=== PATIENT | female | born 1960 | race Caucasian/White ===

== ENCOUNTER 2017-01-10 06:55 | Inpatient (IN) | payer BC ==
[2017-01-10] MEDS ORDERED: Midazolam HCl 2 mg/2 ml Vial ONE ×2 (08:51→08:56)
[2017-01-10] MEDS ORDERED: Fentanyl 100 MCG/2 ML VIAL ONE ×3 (08:56→12:01)
[2017-01-10] MEDS ORDERED: Bupivacaine HCl 0.5%/Epinephrine 1:200,000/PF 30 ml Vial ONE (08:57)
[2017-01-10] MEDS ORDERED: Ondansetron HCl/PF 4 MG/2 ML Vial ONE (09:27)
[2017-01-10] MEDS ORDERED: Succinylcholine Chloride 20 MG/ML 10 ml SYRINGE FS ONE (09:27)
[2017-01-10] MEDS ORDERED: Labetalol HCl 100 MG/20 ML SYR ONE (09:27)
[2017-01-10] MEDS ORDERED: PHENYLEPHRINE-NS 100 MCG/ML 10 ML SYRINGE ONE (09:27)
[2017-01-10] MEDS ORDERED: Propofol 200 MG/20 ML VIAL ONE (09:27)
[2017-01-10] MEDS ORDERED: Glycopyrrolate 0.2 MG/ML 5 ML SYRINGE ONE (09:27)
[2017-01-10] MEDS ORDERED: Dexamethasone 20 MG/5 ML VIAL ONE (09:27)
[2017-01-10] MEDS ORDERED: Lidocaine 2% PF 10 ML AMP (For Epidural Use) ONE (09:27)
[2017-01-10] MEDS ORDERED: Phenylephrine 10 MG/NS 250 ML 250 ML ONE (10:09)
[2017-01-10] MEDS ORDERED: Dextrose 50% Abboject 50 ML SYRINGE SLOW IVP PRN ×2 (11:21)
[2017-01-10] MEDS ORDERED: Promethazine HCl 25 MG/ML VIAL IM PRN ×3 (11:21→12:33)
[2017-01-10] MEDS ORDERED: Ondansetron HCl/PF 4 MG/2 ML Vial IVP PRN ×3 (11:21→12:33)
[2017-01-10] MEDS ORDERED: diphenhydrAMINE HCl 50 MG/ML 1 ML VIAL IVP PRN ×2 (11:21→12:33)
[2017-01-10] MEDS ORDERED: Hydrocodone-Acetamin 15 ML UDCUP PO PRN (11:21)
[2017-01-10] MEDS ORDERED: Dextrose 5% in Water 1,000 ML IV PRN (11:21)
[2017-01-10] MEDS ORDERED: Promethazine HCl 25 MG/ML VIAL SLOW IVP PRN (11:29)
[2017-01-10] MEDS ORDERED: HYDROmorphone 2 MG/ML VIAL SLOW IVP PRN (11:29)
[2017-01-10] MEDS ORDERED: Dextrose 5% in Water 1,000 ML IV SCH (11:30)
--- NOTE | 2017-01-10 11:37 | OP ---
PREOPERATIVE DIAGNOSIS: Large hiatal hernia with reflux. SURGEON: Kalin Victor M.D. PROCEDURE PERFORMED: Laparoscopic hiatal hernia repair with mesh, Cari fundoplication, and esopha gogastroduodenoscopy. INDICATIONS: This is a 56-year-old female who has had severe gastroesophageal reflux. She also was having epigastric pain. A CT scan showed large hiatal hernia. She underwent EGD documenting the h iatal hernia. She underwent an esophageal manometry which showed low lower esophageal sphincter pre ssure. FINDINGS: Very large hiatal hernia containing a lot of adipose. This was done over a 40 Czech clyde gie. PROCEDURE IN DETAIL: After informed consent was obtained, the patient was taken to the operating ro om and given general endotracheal anesthesia, placed in the supine position. Her abdomen was preppe d and draped in the usual fashion. Local anesthesia infiltrated subcutaneously and deep. A 5 mm in cision was performed approximately 8 inches below the xiphoid slightly to the left. Veress needle i nserted. Drop test performed. Pneumoperitoneum was created to a volume of 2 liters of carbon dioxi de. Utilizing a bladeless 5 mm trocar and 0 degree laparoscope, direct visual entry in the abdomina l cavity was performed. Pneumoperitoneum was created to a pressure of 15 mmHg. The patient placed in steep reverse Trendelenburg position. Nathansen liver retractor inserted. Left lobe of liver re tracted superiorly. She had a large hiatal hernia defect. A 5 mm port was placed just to the left of the falciform. An 8 mm port placed left subcostal and another 5 mm port placed left lateral abdo men. The stomach was reduced and the peritoneum opened. The gastrophrenic ligament was opened util izing the LigaSure. The peritoneum was opened circumferentially with the LigaSure. Then a retroeso phageal plane was created bluntly. The Yang drain was then placed through this opening and the e sophagus was retracted inferiorly. The hiatal opening was further defined using the LigaSure. A 40 -Czech bougie inserted and a posterior crural plication was performed utilizing 0 Ethibond and Sew- Right and tie knot device. Then, a Strattice 4 x 6 cm mesh was used. It was cut into a heart shape and a small hole cut out for the esophagus. This was inserted intraabdominally, placed around the esophagus and sutured to the diaphragm with interrupted 2-0 silk sutures tied intracorporeally. The n, the short gastrics were taken down utilizing the LigaSure to expose the fundus. The fundus was t hen grasped and sutured to itself over the bougie with interrupted 2-0 silk sutures tied intracorpor eally. Then, the TISSEEL tissue sealer was used to further secure the mesh to the diaphragm. An in traoperative endoscopy was performed. The video endoscope inserted under direct vision and advanced into the stomach. The stomach insufflated with air. There was no air leak. The pylorus was cannu lated into the duodenum, no problems. The scope was retracted retroflexed. The wrap looked good. No torsion or paraesophageal component. The stomach decompressed and the scope removed. Trocars an d retractors removed. The skin closed with interrupted 4-0 Rapide. Dermabond applied. The patient tolerated the procedure well and transferred to recovery in good condition. Sponge and needle coun t verified correct x2.
[2017-01-10] MEDS ORDERED: diphenhydrAMINE HCl 25 MG CAP PO PRN (12:33)
[2017-01-10] MEDS ORDERED: diphenhydrAMINE HCl 50 MG/ML 1 ML VIAL IM PRN (12:33)
[2017-01-10] MEDS ORDERED: Fentanyl 5000 MCG/250 ML CADD IVPB PRN ×2 (12:33→16:03)
[2017-01-10] MEDS ORDERED: Naloxone HCl 0.4 mg/ml Vial IV PRN (12:33)
[2017-01-10] MEDS ORDERED: Zolpidem Tartrate 5 MG TAB PO PRN (12:33)
[2017-01-10] MEDS ORDERED: Communication Order-Pharmacy FS SCH (12:45)
[2017-01-10] MEDS: D5 1/2 NS w/20 mEq KCL 1,000 ML IV SCH ×2 (14:32→22:17)
[2017-01-10 16:29] VITALS: BMI 34.7
[2017-01-10] MEDS: Ketorolac Tromethamine 30 MG/ML VIAL IVP SCH ×3 (17:06→23:58)
[2017-01-10] MEDS ORDERED: cloNIDine 0.2mg/24 Hour PATCH TD SCH (20:00)
--- NOTE | 2017-01-10 22:48 | CON ---
DATE OF CONSULTATION: 01/10/2017 CHIEF COMPLAINT: Elevated blood pressure. HISTORY OF PRESENT ILLNESS: The patient is a 57-year-old female who on the day of consultation has just undergone a laparoscopic hiatal hernia repair with mesh, Cari fundoplication and esophagogast roduodenoscopy. Postop, she was complaining of a lot of pain and has had a very labile blood pressu re since coming out of the recovery room. It has been up into the 190s. Currently, it is 154/87. The patient is alert, responsive. Denies headaches, nausea, vomiting, blurred vision, chest pain, b ut she is having operative site swelling and tenderness especially in the xiphoid area. PAST MEDICAL HISTORY: Significant for very large hiatal hernia with secondary GI bleed causing anem ia, severe anxiety, dyspnea, proctocolitis, history of gastric ulcer, hypertension, GERD, depression , and chronic back pain. PAST SURGICAL HISTORY: Include most recently EGD and colonoscopy per last hospitalization and recen t cardiac clearance per Dr. Tom showing no evidence of cardiac ischemia, 2 previous C-sections, left shoulder surgery, a cyst on her chest removed and cholecystectomy, prior psychiatric history i ncludes Anxiety and depression. SOCIAL HISTORY: She is , denies smoking but drinks socially and occasionally. ALLERGIES: She has no known drug allergies. MEDICATIONS ON ADMISSION: Include doxepin 300 mg at bedtime, BuSpar 10 mg b.i.d., Topamax 100 b.i.d ., citalopram 20 mg, hydroxyzine 50 mg t.i.d. for anxiety, omeprazole 20 mg daily, and lisinopril 20 mg daily. REVIEW OF SYSTEMS: Significant for anxiety but constitutionally she is negative for chills, fever. Eyes: Negative for pain, blurred incision and drainage. HEENT: Negative for throat pain, Runny n ose, sores, ulcers. Neck: Supple, denying pain with range of motion or swelling or masses. Cardio vascular: Denies palpitations, peripheral extremities were warm to touch. Chest: Tender in the xi phoid area to palpation, but no pain with inspiration. Abdomen: Swollen and distended, tender to p alpation. Denies vomiting, nausea, diarrhea. Genitourinary: Denies blood in urine or stool or tonia nful urination. Musculoskeletal: Denies swelling, pain in the joints or weakness. Skin: Without acute rashes or lesions aside from ecchymotic bruising at the incision sites. Neurologic: She is a nxious, but denies hallucinations or delusions. PHYSICAL EXAMINATION: At the time of consultation, VITAL SIGNS: 177/104, pulse 79, temperature 98.7, respirations 20, O2 sat 96%. GENERAL: This is an obese, female, alert, oriented, and cooperative. HEENT: Normocephalic and atraumatic. Pupils equal, round, and reactive to light. Extraocular musc les are intact. TMs, nares, pharynx are clear. NECK: Supple, trachea midline, no mass, no tenderness. CHEST: Clear to auscultation, tender at the xiphoid area with some swelling. HEART: Regular rate and rhythm without murmur. BREAST: Deferred. ABDOMEN: Tender supraumbilical area, appears swollen and distended with bruising at the incision si giuliana. GENITOURINARY: Deferred. EXTREMITIES: Without clubbing, cyanosis, or edema. Normal range of motion present. SKIN: Without rashes or lesions aside from ecchymotic incision site lesions. NEUROLOGIC: Cranial nerves are intact. Unable to test gait and cerebellar function at this time. Sensory exam is grossly intact. Mental status is at baseline. ASSESSMENT: 1. Postoperative day #1 for hiatal hernia repair with Cari fundoplication and EGD. 2. Hypertension. 3. Anxiety disorder. PLAN: Will apply Catapres transdermal patch since the patient is n.p.o. at this time for swallow st udy in the morning. We will also have p.r.n. hydralazine 10 mg IV q.2 h. p.r.n. systolic over 170. Should there be any further complications, the nursing staff will contact me. Time factor with [facility] rt review, the patient examination and preparation of consultation with dictation at 50 minutes.
[2017-01-11] MEDS: Ketorolac Tromethamine 30 MG/ML VIAL IVP SCH ×2 (06:00→13:20)
[2017-01-11] MEDS: D5 1/2 NS w/20 mEq KCL 1,000 ML IV SCH ×2 (06:10→13:25)
[2017-01-11 06:17] LABS: #Lymphocytes 0.8 thou/uL (1.20-3.40); #Monocytes 0.8 thou/uL (0.11-0.59); %Lymphocytes 7.7 % (21.0-51.0); %Monocytes 7.2 % (0.0-10.0); Hematocrit 32.2 % (36.0-47.0); Mean Platelet Volume 8.5 fL (7.4-10.4); Red Blood Cell (RBC) Count 4.11 mill/uL (4.20-5.40); White Blood Cell (WBC) Count 10.5 thou/uL (4.8-10.8)
[2017-01-11 06:39] LABS: Anion Gap 13 mmol/L (10-20); BUN (Urea Nitrogen) 10 mg/dL (9.8-20.1); Calc. Creatinine Clearance 108 mL/min (70-130); Calcium 9.6 mg/dL (7.8-10.44); Carbon Dioxide 23 mmol/L (22-29); Chloride 105 mmol/L (98-107); Estimated GFR-MDRD 77
[2017-01-11] MEDS ORDERED: Enoxaparin Sodium 40 MG/0.4 ML SYRINGE SC SCH (09:00)
[2017-01-11] MEDS ORDERED: Pantoprazole 40 MG VIAL IVP SCH (09:00)
--- NOTE | 2017-01-11 09:53 | RAD ---
LIMITED UPPER GI WITH 25 ML ORAL GASTROGRAFIN: Date: 01/11/17 HISTORY: Recent hiatal hernia surgery. FINDINGS/IMPRESSION: There are tertiary contractions in the esophagus. The contrast passes from the esophagus into the st omach without high grade obstruction. No contrast leak is seen. POS: [facility]
[2017-01-11 12:19] VITALS: BP 155/82; TEMP 98.1
[2017-01-11] MEDS ORDERED: Acetaminophen 1,000 MG in Premix Bag 1 BAG IVPB SCH (14:00)
--- NOTE | 2017-01-11 22:53 | DIS ---
DISCHARGE DIAGNOSES: 1. Large hiatal hernia. 2. Severe gastroesophageal reflux. PROCEDURES DURING ADMISSION: Laparoscopic hiatal hernia repair with mesh, Cari fundoplication, in traoperative esophagogastroscopy, postoperative Gastrografin swallow. HOSPITAL COURSE: Patient was admitted and taken to the operating room where she underwent a hiatal hernia repair. Postoperatively, she has done well. Initial Gastrografin swallow was fine, started on liquids. She is tolerating well. She is discharged home in good condition. Pain is controlled on p.o. medications. Discharged home on hydrocodone elixir and Zofran. She will follow up with me in 2 weeks.
[2017-01-17] MEDS ORDERED: cloNIDine 0.2mg/24 Hour PATCH TD SCH (09:00)
[2017-01-17] MEDS ORDERED: Hydrocodone-Acetamin 15 ML UDCUP PO PRN (12:36)
== END 2017-01-11 16:11 | disposition home or self-care (01) | DRG 328 ==
LOC: SDC 06:55 → SURG A 11:33
PROVIDERS: ADMIT Surgery; ATTEND Surgery
PROC: 0BUS4JZ (ICD-10-PCS; principal; 2017-01-10)
PROC: 0DV48ZZ Restriction of Esophagogastric Junction, Via Natural or Artificial Opening Endoscopic (ICD-10-PCS; 2017-01-10)
PROC: 0BUR4JZ (ICD-10-PCS; 2017-01-10)
DX: K44.9 Diaphragmatic hernia without obstruction or gangrene (principal); I10 Essential (primary) hypertension; K21.9 Gastro-esophageal reflux disease without esophagitis; D64.9 Anemia, unspecified; F41.9 Anxiety disorder, unspecified; F32.9 Major depressive disorder, single episode, unspecified; Z87.891 Personal history of nicotine dependence
CPT/HCPCS: 36415; 74241; 80048; 85025; C9113; J0131; J0360; J0670; J1100; J1650; J1885; J2001; J2250; J2405; J2704; J3010; Q4130

== ENCOUNTER 2017-01-13 11:41 | Emergency (ER) | payer BC ==
[2017-01-13] MEDS ORDERED: Labetalol HCl 100 MG/20 ML VIAL ONE (12:51)
[2017-01-13] MEDS ORDERED: Ondansetron HCl/PF 4 MG/2 ML Vial ONE (12:57)
[2017-01-13 13:06] LABS: #Eosinphils 0.2 thou/uL (0.0-0.7); #Lymphocytes 1.1 thou/uL (1.20-3.40); #Monocytes 0.8 thou/uL (0.11-0.59); #Neutrophils 5.3 thou/uL (1.40-6.50); %Basophils 0.6 % (0.0-1.0); %Eosinophils 2.2 % (0.0-10.0); %Monocytes 10.2 % (0.0-10.0); Hematocrit 34.4 % (36.0-47.0); Mean Platelet Volume 8.5 fL (7.4-10.4); Red Blood Cell (RBC) Count 4.38 mill/uL (4.20-5.40); White Blood Cell (WBC) Count 7.4 thou/uL (4.8-10.8)
[2017-01-13 13:29] LABS: ALT (SGPT) 105 U/L (8-55); AST (SGOT) 48 U/L (5-34); Alkaline Phosphatase 92 U/L (40-150); Anion Gap 15 mmol/L (10-20); BUN (Urea Nitrogen) 6 mg/dL (9.8-20.1); Bilirubin, Total 0.2 mg/dL (0.2-1.2); CK (CPK) 61 U/L (29-168); Calc. Creatinine Clearance 0 mL/min (70-130); Calcium 9.2 mg/dL (7.8-10.44); Carbon Dioxide 25 mmol/L (22-29); Chloride 100 mmol/L (98-107); Estimated GFR-MDRD 86; Globulin 3.2 g/dL (2.4-3.5); Protein, Total 6.9 g/dL (6.0-8.3); Salicylate Less than 8.0 mg/dL (15.0-30.0)
[2017-01-13] MEDS ORDERED: ISOVUE-370 76%-LOCM 1 ML ONE (14:27)
[2017-01-13 14:29] LABS: Bilirubin Negative (Negative); Blood, Urine Negative (Negative); Glucose, Urine (Dipstick) Negative (Negative); Ketone, Urine Negative (Negative); Nitrite Negative (Negative); Protein, Urine (Dipstick) Negative (Neg-Trace); Urobilinogen 0.2 mg/dL (0.2-1.0)
[2017-01-13 14:38] LABS: Amphetamine Not Detected (NotDetected); Methadone Not Detected (NotDetected); Methamphetamine Not Detected (NotDetected)
--- NOTE | 2017-01-13 15:20 | CT ---
CT OF THE ABDOMEN AND PELVIS WITH CONTRAST: COMPARISON: 10/18/15. HISTORY: Postoperative pain. Medical overdose on pain medications. TECHNIQUE: Multiple contiguous axial images were obtained in a CT of the abdomen and pelvis with contrast. Cor onal reformats were performed. Contrast is seen in the colon which may be from prior contrast exami nation. FINDINGS: The patient is status post cholecystectomy. The liver, right kidney, adrenal glands, spleen, and pa ncreas are unremarkable. There are stable hypodensities in the left kidney measuring up to 1.7 cm i n size which represent cysts. No free air, free fluid, or stranding changes are seen in the abdomen or pelvis. The reproductive organs are unremarkable. There is scattered diverticula in the colon. The small b owel is unremarkable. No abdominal or pelvic lymphadenopathy are seen. There are small bilateral pleural effusions with adjacent atelectasis. The abdominal wall soft tiss ues are unremarkable. IMPRESSION: 1. No evidence of acute intraabdominal/pelvic abnormality. 2. Bilateral pleural effusions with adjacent atelectasis. 3. Left renal cyst. 4. Diverticulosis. POS: [facility]
== END 2017-01-13 14:56 | disposition home or self-care (01) ==
LOC: ERS 11:41
DX: G89.18 Other acute postprocedural pain (principal); I10 Essential (primary) hypertension; K21.9 Gastro-esophageal reflux disease without esophagitis; F41.9 Anxiety disorder, unspecified; F32.9 Major depressive disorder, single episode, unspecified
CPT/HCPCS: 36415; 36416; 74177; 80053; 80306; 80307; 81003; 82550; 82553; 83605; 84443; 84484; 85025; 93005; 96374; 96375; J0360; J2405

== ENCOUNTER 2017-08-04 20:12 | Inpatient (IN) | payer BC ==
[~2017-08-04 20:12] MED LIST: ISOVUE-370 76%-LOCM 1 ML ONE
[2017-08-04 20:44] LABS: #Eosinphils 0.3 thou/uL (0.0-0.7); #Lymphocytes 2.4 thou/uL (1.20-3.40); #Monocytes 0.8 thou/uL (0.11-0.59); #Neutrophils 6.6 thou/uL (1.40-6.50); %Basophils 0.4 % (0.0-1.0); %Lymphocytes 23.5 % (21.0-51.0); %Monocytes 8.2 % (0.0-10.0); %Neutrophils 64.9 % (42.0-75.0); Hemoglobin 12.9 g/dL (12.0-16.0); Mean Corpuscular Hemoglobin 24.9 pg (27.0-31.0); Mean Corpuscular Volume 75.4 fl (81.0-99.0); Mean Platelet Volume 7.5 fL (7.4-10.4); Platelet Count 264 thou/uL (130-400); RBC Distribution Width 15.8 % (11.5-14.5); Red Blood Cell (RBC) Count 5.19 mill/uL (4.20-5.40); White Blood Cell (WBC) Count 10.2 thou/uL (4.8-10.8)
[2017-08-04] MEDS ORDERED: Ondansetron ODT 4 MG TAB ONE (20:55)
[2017-08-04] MEDS ORDERED: Morphine 4 MG/ML VIAL ONE ×3 (20:55→23:06)
[2017-08-04] MEDS ORDERED: hydrALAZINE 20 MG/ML VIAL ONE (20:55)
[2017-08-04 21:05] LABS: ALT (SGPT) 16 U/L (8-55); AST (SGOT) 19 U/L (5-34); Albumin 4.4 g/dL (3.5-5.0); Alkaline Phosphatase 91 U/L (40-150); Anion Gap 17 mmol/L (10-20); BUN (Urea Nitrogen) 12 mg/dL (9.8-20.1); Bilirubin, Total 0.2 mg/dL (0.2-1.2); CK (CPK) 73 U/L (29-168); Calc. Creatinine Clearance 0 mL/min (70-130); Calcium 9.8 mg/dL (7.8-10.44); Carbon Dioxide 24 mmol/L (22-29); Chloride 102 mmol/L (98-107); Estimated GFR-MDRD 75; Globulin 3.6 g/dL (2.4-3.5); Glucose 104 mg/dL (70-105); Potassium 3.5 mmol/L (3.5-5.1); Sodium 139 mmol/L (136-145)
[2017-08-04 21:07] LABS: CKMB 1.1 ng/mL (0-6.6); Troponin I Less than 0.010 ng/mL (< 0.028)
--- NOTE | 2017-08-04 21:19 | RAD ---
AP VIEW OF THE CHEST: 08/04/17 INDICATION: Chest pain and shortness of breath. COMPARISON: Prior exam dated 12/01/16. CT of the thorax dated 12/04/16. FINDINGS: There is a large hiatal hernia. There is moderate to prominent cardiomegaly. No keon consolidation, pleural effusion, or pneumothorax evident. IMPRESSION: 1. No acute abnormality. 2. Stable cardiomegaly. 3. Stable large hiatal hernia. POS: [facility]
[2017-08-04] MEDS ORDERED: Dexamethasone 10 MG/ML VIAL ONE ×2 (22:14→22:17)
[2017-08-04] MEDS ORDERED: Dexamethasone 4 mg/ml Vial ONE (22:14)
[2017-08-04] MEDS ORDERED: Dexamethasone 4 MG TAB ONE (22:15)
--- NOTE | 2017-08-04 22:19 | CT ---
CT OF THE ABDOMEN AND PELVIS WITH IV CONTRAST: 08/04/17 INDICATION: Epigastric abdominal pain with worsening shortness of breath. FINDINGS: There is an organoaxial type volvulus involving the proximal and distal stomach with associated large hiatal hernia. The gallbladder is surgically absent. There is a stable inferior pole left renal cyst. There is an additional smaller cyst within the super ior pole of the left kidney when compared to the prior dated 01/13/17. The pancreas and spleen are within normal limits. There is a normal appendix in the right lower quadrant. There is scattered colonic diverticula. No definite acute osseous abnormality is evident. IMPRESSION: Findings consistent with gastric volvulus. Findings called to Lupe CARBAJAL at 10 p.m. on 08/04/17. POS: [facility]
[2017-08-04] MEDS ORDERED: CEFAZOLIN/Water 2 GM/20 ML SYRINGE ONE (23:29)
[2017-08-04] MEDS ORDERED: Fentanyl 100 MCG/2 ML VIAL ONE (23:31)
[2017-08-04] MEDS ORDERED: Midazolam HCl 2 mg/2 ml Vial ONE (23:31)
[2017-08-04] MEDS ORDERED: Bupivacaine/Epinephrine 0.25% 30 ML VIAL ONE (23:33)
[2017-08-05] MEDS ORDERED: Ondansetron HCl/PF 4 MG/2 ML Vial ONE ×2 (01:34→17:04)
--- NOTE | 2017-08-05 01:50 | HP ---
CHIEF COMPLAINT: Severe chest pain. HISTORY: Patient is a 57-year-old female who underwent a laparoscopic Cari fundoplication in 01/05 17 for repair of a large hiatal hernia. She reports that over the last 2 weeks, she has been having intermittent chest pain, nausea, and dysphagia of solid food. She said today at work, she tried to e at a breakfast [employer] and developed severe pain, nausea, she could not vomit. She was developing dr bernice jones. She also reports loose stools for the last 2 weeks. She was very hypertensive when all th is is going on. She has not had any black stools. She does not have any fever. PAST MEDICAL HISTORY: Significant for anxiety. She had a gastrointestinal bleed that was caused by the large hernia. She has a history of colitis, gastric ulcer, hypertension, depression, chronic taz k pain. PAST SURGICAL HISTORY: She has had section x2, left shoulder surgery. She has had a cholec ystectomy and she had hiatal hernia repair. SOCIAL HISTORY: She is . No tobacco, occasional alcohol. ALLERGIES: She has no known drug allergies. MEDICATIONS: Include doxepin, BuSpar, Topamax with citalopram, hydroxyzine, omeprazole, lisinopril. PHYSICAL EXAMINATION: VITAL SIGNS: Temperature is 98.2, pulse 90, blood pressure is 260/190. She is an obese female. GENERAL: She is awake, alert, but in pain. HEENT: Unremarkable. LUNGS: Clear. HEART: Regular rate and rhythm. ABDOMEN: Tender in the midepigastrium, I do not feel any hernias. EXTREMITIES: Unremarkable. LABORATORY AND X-RAY FINDINGS: Her white count is 10.2, H&H 12 and 39, platelet count of 264. Elect rolytes are fine. She had a CT scan showing an organoaxial type volvulus involving the proximal and distal stomach associated with recurrent hiatal hernia. ASSESSMENT: Gastric volvulus with severe pain, worrisome for some ischemia. PLAN: An attempted laparoscopic repair, possible open, possible gastrostomy tube placement. Patient understands it as well as risk of bleeding, infection, injury to spleen, esophagus, bowel, stomach, need to open. She understands and gives informed consent.
[2017-08-05] MEDS ORDERED: SUGAMMADEX SODIUM 200 MG/2 ML VIAL ONE (01:55)
[2017-08-05] MEDS ORDERED: Dextrose 50% Abboject 50 ML SYRINGE SLOW IVP PRN (02:09)
[2017-08-05] MEDS ORDERED: Promethazine HCl 25 MG/ML VIAL IM PRN ×2 (02:09→02:10)
[2017-08-05] MEDS ORDERED: Dextrose 5% in Water 1,000 ML IV PRN (02:09)
[2017-08-05] MEDS ORDERED: Ondansetron HCl/PF 4 MG/2 ML Vial IVP PRN ×3 (02:09→02:23)
[2017-08-05] MEDS ORDERED: Promethazine HCl 25 MG/ML VIAL SLOW IVP PRN (02:10)
[2017-08-05] MEDS ORDERED: Fentanyl 100 MCG/2 ML VIAL ONE (02:14)
[2017-08-05] MEDS ORDERED: Fentanyl 5000 MCG/250 ML CADD IVPB PRN (02:23)
[2017-08-05] MEDS ORDERED: Naloxone HCl 0.4 mg/ml Vial IV PRN (02:23)
[2017-08-05] MEDS ORDERED: Communication Order-Pharmacy FS SCH (02:30)
--- NOTE | 2017-08-05 02:32 | OP ---
PREOPERATIVE DIAGNOSIS: Gastric volvulus, acute in nature. SURGEON: Kalin Victor M.D. PROCEDURE PERFORMED: Diagnostic laparoscopy, then open reduction and repair of paraesophageal hernia with open gastrostomy tube placement and EGD. INDICATIONS: The patient is a 57-year-old female, who had undergone a laparoscopic hiatal hernia rep air in December that was done with porcine mesh reinforcement, who over the last couple of weeks has been having some dysphagia and had the acute onset of total of severe chest and upper abdominal pain and vomiting. A CT scan showed a volvulus. FINDINGS: Very dense adhesions along the anterior medial and lateral aspect of the hiatus. There wa s a defect posterior containing the fundus, which has had a paraesophageal component. The stomach ap peared slightly ischemic, but was viable and pinked up fine. PROCEDURE IN DETAIL: On an emergency basis, the patient was taken to the operating room and given ge neral endotracheal anesthesia. She was placed in the supine position. Her abdomen was prepped and d raped in usual fashion. Local anesthesia infiltrated subcutaneously and deep. A 5 mm incision was p erformed approximately 6 inches below the xiphoid slightly to the left. Veress needle inserted. Frank p test performed. Pneumoperitoneum was created to a volume of 2 liters of carbon dioxide. Utilizing a bladeless 5 mm trocar and 0-degree laparoscope, direct visual entry in the abdominal cavity was pe rformed. Pneumoperitoneum was created to a pressure of 15 mmHg. The patient placed in steep reverse Trendelenburg position and a [place] liver retractor inserted. Left lobe of liver retracted super iorly. Three other 5-mm ports were placed, one just to the left of the falciform, 1 left subcostal, and 1 left lateral abdomen. She is morbidly obese and she had an incredible amount of visceral adipo se within the peritoneal cavity, making it really difficult. So, at first, I saw no evidence of the stomach at all, was able to retract some of the omentum down and found the distal stomach and pylorus , was trying to trace that up and it was stuck. Then up around the hiatal opening, it was incredible adhesions, because we used porcine mesh and induced those adhesions. I could not define the anatomy nor reduce any stomach, so elected to convert to an open procedure. An upper midline incision was p erformed and the subcu divided sharply with electrocautery. The fascia was incised with a 10 blade a nd the abdomen explored. Once I was able to get my hand up there, I could feel that the stomach had herniated posteriorly and I was able to reduce that stomach. I tried to dissect this hiatal opening, but the adhesions were so dense. I was very, very concerned about injuring the gastric wall or the spleen, so I elected to do an endoscopy to see what was going on and I was able to advance the endosc ope straight down to the pylorus and through the pylorus into the duodenum. I left the endoscope in as a guide and turned it off, but left the scope in and then rescrubbed back in. This helped me to f urther define the anatomy. Again, there was probably at least 2 cm of adhesions anterior, lateral, a nd medial, but there is this defect where the stomach posteriorly had herniated. I did put a couple of stitches in that with a 2-0 silk to try and obliterate that potential space, but in order to assur e that the stomach did not try to twist or re-herniate, elected to place a gastrostomy tube as well. An 18-[place] gastrostomy tube was brought through the abdominal wall. The balloon tested. It was f ine. A pursestring of 2-0 silk placed high on the fundus and a gastrotomy was performed with electro cautery. The gastrostomy tube was inserted within the stomach, the balloon inflated, and then it was pulled up to the abdominal wall and sutured in place with interrupted 2-0 silk sutures rafaela louis. This was after the pursestring was tied down. Then it was further secured to the abdominal wa ll with interrupted 2-0 silk sutures. The abdomen was thoroughly irrigated with saline. This was th en removed. The fascia closed with a running loop #1 PDS. Subcutaneous irrigated, hemostasis assure d. Skin closed with skin nimesh. Sterile bandage applied. The patient tolerated the procedure wel l and was transferred to recovery in fair condition.
[2017-08-05] MEDS ORDERED: fentaNYL Citrate/PF 2,000 MCG in Sodium Chloride 0.9% 60 ML IV PRN (02:45)
[2017-08-05] MEDS: hydrALAZINE 20 MG/ML VIAL SLOW IVP PRN ×2 (03:58→20:21)
[2017-08-05] MEDS: D5 1/2 NS w/20 mEq KCL 1,000 ML IV SCH ×3 (03:58→20:28)
[2017-08-05 04:31] LABS: #Lymphocytes 0.9 thou/uL (1.20-3.40); #Monocytes 0.2 thou/uL (0.11-0.59); #Neutrophils 11.7 thou/uL (1.40-6.50); %Basophils 0.1 % (0.0-1.0); %Eosinophils 0.2 % (0.0-10.0); %Lymphocytes 6.7 % (21.0-51.0); %Monocytes 1.8 % (0.0-10.0); %Neutrophils 91.2 % (42.0-75.0); Hemoglobin 12.2 g/dL (12.0-16.0); Mean Corpuscular HGB CONC 32.1 g/dL (32.0-36.0); Mean Corpuscular Hemoglobin 24.8 pg (27.0-31.0); Mean Corpuscular Volume 77.1 fl (81.0-99.0); Mean Platelet Volume 7.8 fL (7.4-10.4); Platelet Count 241 thou/uL (130-400); RBC Distribution Width 16.2 % (11.5-14.5); Red Blood Cell (RBC) Count 4.91 mill/uL (4.20-5.40); White Blood Cell (WBC) Count 12.8 thou/uL (4.8-10.8)
[2017-08-05 04:45] LABS: ALT (SGPT) 42 U/L (8-55); AST (SGOT) 64 U/L (5-34); Albumin 4.1 g/dL (3.5-5.0); Alkaline Phosphatase 83 U/L (40-150); Anion Gap 16 mmol/L (10-20); BUN (Urea Nitrogen) 13 mg/dL (9.8-20.1); Bilirubin, Total 0.2 mg/dL (0.2-1.2); Calc. Creatinine Clearance 79 mL/min (70-130); Calcium 9.4 mg/dL (7.8-10.44); Carbon Dioxide 23 mmol/L (22-29); Chloride 104 mmol/L (98-107); Estimated GFR-MDRD 61; Globulin 3.2 g/dL (2.4-3.5); Glucose 214 mg/dL (70-105); Potassium 3.5 mmol/L (3.5-5.1); Protein, Total 7.3 g/dL (6.0-8.3); Sodium 139 mmol/L (136-145)
[2017-08-05] MEDS ORDERED: Famotidine/PF 20 mg/2ml Vial SLOW IVP SCH (09:00)
[2017-08-05] MEDS: Pantoprazole 40 MG VIAL IVP SCH (09:13)
[2017-08-05] MEDS ORDERED: Famotidine 40 MG/4 ML VIAL SLOW IVP SCH (10:30)
--- NOTE | 2017-08-05 11:53 | RAD ---
CHEST 2 VIEWS: HISTORY: Esophageal surgery. COMPARISON: 08/04/17. FINDINGS: Cardiac silhouette is upper limits of normal in size. Mediastinum is midline. Bibasilar atelectasis is apparent. Gas overlies the posterior mediastinum from recent surgery. No evidence of pneumothor ax. IMPRESSION: Postoperative changes chest and abdomen. Bibasilar atelectasis has improved slightly. POS: [facility]
[2017-08-05] MEDS ORDERED: Succinylcholine Chloride 20 MG/ML 10 ml SYRINGE FS ONE (17:04)
[2017-08-05] MEDS ORDERED: Glycopyrrolate 0.2 MG/ML 5 ML SYRINGE ONE (17:04)
[2017-08-05] MEDS ORDERED: Lidocaine 1% PF 5 ML VIAL ONE (17:04)
[2017-08-05] MEDS ORDERED: PROPOFOL 200 MG/20 ML VIAL ONE (17:04)
[2017-08-05] MEDS ORDERED: Dexamethasone 20 MG/5 ML VIAL ONE (17:04)
[2017-08-05] MEDS ORDERED: ePHEDrine/0.9% NaCl/PF SYRINGE 50 mg/10 ml ONE (17:04)
[2017-08-05] MEDS: fentaNYL Citrate/PF 2,000 MCG in Sodium Chloride 0.9% 60 ML IV PRN (17:55)
[2017-08-05] MEDS: Famotidine 40 MG/4 ML VIAL SLOW IVP SCH (20:19)
[2017-08-05] MEDS: Enoxaparin Sodium 40 MG/0.4 ML SYRINGE SC SCH (20:22)
[2017-08-05] MEDS: Ketorolac Tromethamine 30 MG/ML VIAL IVP PRN (21:42)
[2017-08-06] MEDS: D5 1/2 NS w/20 mEq KCL 1,000 ML IV SCH ×2 (04:15→15:23)
[2017-08-06] MEDS: Ketorolac Tromethamine 30 MG/ML VIAL IVP PRN ×2 (05:49→13:54)
[2017-08-06] MEDS: Pantoprazole 40 MG VIAL IVP SCH (09:32)
[2017-08-06] MEDS: Famotidine 40 MG/4 ML VIAL SLOW IVP SCH (09:32)
--- NOTE | 2017-08-06 10:46 | RAD ---
UPPER GI SINGLE COLUMN NO AIR: Date: 08/06/17 HISTORY: Evaluate gastrectomy. COMPARISON: CT abdomen and pelvis dated 08/04/17. FINDINGS: The patient was given 15 mL of Gastrografin. No evidence of leak. Gastrostomy tube in place. IMPRESSION: No evidence of leak. POS: [facility]
[2017-08-06] MEDS: fentaNYL Citrate/PF 2,000 MCG in Sodium Chloride 0.9% 60 ML IV PRN (12:51)
[2017-08-06] MEDS ORDERED: traMADol HCl 50 MG TAB PO PRN ×2 (15:21)
[2017-08-06] MEDS ORDERED: D5 1/2 NS w/20 mEq KCL 1,000 ML IV SCH (15:25)
--- NOTE | 2017-08-06 16:32 | PRG ---
DATE OF SERVICE: 08/06/2017 SUBJECTIVE: Taisha Fernando seen today for Dr. Victor. Ms. Fernando is doing well. Gastrografin study da y revealed absence of any leak. She denies any nausea or vomiting. OBJECTIVE: LUNGS: Clear to auscultation. CARDIAC: Regular rate and rhythm without murmur or gallop. ABDOMEN: Soft, nontender. LABORATORY DATA: No laboratories today. ASSESSMENT AND PLAN: Doing well. We will advance her to clear liquids today, full liquids tomorrow, we will resume oral analgesics, we can decrease the patient's IV fluids at this time and discharge h ome later today if she is tolerating her diet well.
[2017-08-06] MEDS: hydrALAZINE 20 MG/ML VIAL SLOW IVP PRN ×2 (16:45→22:52)
[2017-08-06] MEDS: Lisinopril 20 MG TAB PO SCH (21:07)
[2017-08-06] MEDS: Acetaminophen 500 MG TAB PO PRN (21:07)
[2017-08-06] MEDS: Enoxaparin Sodium 40 MG/0.4 ML SYRINGE SC SCH (21:07)
[2017-08-07] MEDS: Lisinopril 20 MG TAB PO SCH ×2 (08:07→20:42)
[2017-08-07] MEDS: hydrALAZINE 20 MG/ML VIAL SLOW IVP PRN ×2 (08:07→12:49)
[2017-08-07] MEDS: Acetaminophen 500 MG TAB PO PRN ×2 (08:13→14:27)
[2017-08-07] MEDS: Pantoprazole 40 MG VIAL IVP SCH (08:25)
[2017-08-07] MEDS: Polyethylene Glycol 3350 17 GM Packet PO SCH (08:26)
[2017-08-07] MEDS: Famotidine 40 MG/4 ML VIAL SLOW IVP SCH (08:26)
[2017-08-07] MEDS: fentaNYL Citrate/PF 2,000 MCG in Sodium Chloride 0.9% 60 ML IV PRN (10:29)
[2017-08-07] MEDS: Ketorolac Tromethamine 30 MG/ML VIAL IVP PRN (13:04)
[2017-08-07] MEDS ORDERED: traMADol HCl 50 MG TAB PO PRN ×2 (15:27→15:28)
[2017-08-07] MEDS ORDERED: Furosemide 40 MG/4 ML VIAL SLOW IVP SCH (15:30)
[2017-08-07] MEDS: HYDROcodone/Acetaminophen 7.5/325 mg Tablet PO PRN ×2 (15:49→22:05)
[2017-08-07] MEDS ORDERED: Ondansetron ODT 8 MG TAB SL PRN (18:07)
[2017-08-07] MEDS ORDERED: Ondansetron ORAL SOLN. 4 MG/5 ML UDCUP PO PRN ×2 (18:07)
[2017-08-07] MEDS ORDERED: Ondansetron ODT 8 MG TAB PO PRN (18:07)
[2017-08-07] MEDS: Scopolamine 1.5 mg/72 hour Patch TD SCH (18:40)
[2017-08-07] MEDS: Ondansetron ODT 4 MG TAB PO PRN (18:42)
[2017-08-07] MEDS: Lactated Ringer's 1,000 ML IV SCH (18:43)
--- NOTE | 2017-08-07 18:46 | PRG ---
DATE OF SERVICE: 08/07/2017 SUBJECTIVE: Taisha Fernando is doing well today. She developed nausea. She is not ready for discharge home. OBJECTIVE: VITAL SIGNS: 98.9 degrees, 89, 18, 145/75. LUNGS: Clear to auscultation. CARDIAC: Regular rate and rhythm without murmur or gallop. ABDOMEN: Obese, soft. LABORATORY DATA: None today. Surgical wound looks good. G-tube in place. ASSESSMENT AND PLAN: Nausea. We will plan to place a scopolamine patch. We will put her G-tube to gravity for a bit to see if this resolves her nausea. Hopefully, it should be ready for discharge ho me tomorrow if her nausea resolves.
[2017-08-07] MEDS: Enoxaparin Sodium 40 MG/0.4 ML SYRINGE SC SCH (20:42)
[2017-08-08] MEDS: hydrALAZINE 20 MG/ML VIAL SLOW IVP PRN ×3 (00:24→20:27)
[2017-08-08] MEDS: HYDROcodone/Acetaminophen 7.5/325 mg Tablet PO PRN ×3 (06:37→20:27)
[2017-08-08] MEDS ORDERED: Ibuprofen 600 MG TAB PO PRN (08:00)
[2017-08-08] MEDS: Lactated Ringer's 1,000 ML IV SCH (08:38)
[2017-08-08] MEDS: Pantoprazole 40 MG VIAL IVP SCH ×2 (08:41→20:26)
[2017-08-08] MEDS: Lisinopril 20 MG TAB PO SCH ×2 (08:41→20:26)
[2017-08-08] MEDS: Polyethylene Glycol 3350 17 GM Packet PO SCH (08:42)
[2017-08-08] MEDS: Enoxaparin Sodium 40 MG/0.4 ML SYRINGE SC SCH (20:26)
[2017-08-09] MEDS: hydrALAZINE 20 MG/ML VIAL SLOW IVP PRN (00:25)
[2017-08-09] MEDS: Lactated Ringer's 1,000 ML IV SCH ×2 (00:59→14:39)
[2017-08-09] MEDS: Ibuprofen 600 MG TAB PO PRN ×2 (04:03→17:14)
[2017-08-09] MEDS: Ondansetron ODT 4 MG TAB PO PRN (04:08)
[2017-08-09] MEDS ORDERED: Promethazine HCl 25 MG/ML VIAL IM/IV PRN (08:13)
[2017-08-09] MEDS: HYDROcodone/Acetaminophen 7.5/325 mg Tablet PO PRN ×3 (08:48→20:38)
[2017-08-09] MEDS: Lisinopril 20 MG TAB PO SCH ×2 (08:49→20:32)
[2017-08-09] MEDS: Pantoprazole 40 MG VIAL IVP SCH ×2 (08:50→20:28)
[2017-08-09] MEDS: Polyethylene Glycol 3350 17 GM Packet PO SCH (08:50)
--- NOTE | 2017-08-09 17:57 | CON ---
DATE OF CONSULTATION: 08/09/2017 CHIEF COMPLAINT: Nausea. HISTORY OF PRESENT ILLNESS: Ms. Fernando is a 57-year-old woman who presented to the emergency room on 08/04/2017 with severe abdominal pain secondary to a gastric volvulus associated with the hiatal her esteban. She underwent emergent open reduction and repair of a paraesophageal hiatal hernia with open ga strostomy tube placement. An EGD was done at that time and a diagnostic laparoscopy by Dr. Victor. S he has had nausea after the procedure. She did have some dry heaves initially the first night of the procedure; however, her nausea has been gradually improving. She had an upper GI series on 08/07/19 18, which showed no evidence of leak. She still has had persistent nausea and GI was consulted to tanika gleason up on this today. Actually through the course of today, however, she started to do somewhat bet ter. She has required no medication for nausea today, but she has had some hydrocodone for pain. Vielka rocha took some MiraLax since she has not had a bowel movement since the day of her surgery. She has not had any output with that. She has tolerated some tea and milkshake today. She had some macaroni an d cheese today, and has been advanced to a GI soft diet. PAST MEDICAL HISTORY: Gastric ulcer, hiatal hernia, hypertension, depression, and anxiety. PAST SURGICAL HISTORY: , shoulder surgery, cholecystectomy, prior hiatal hernia repair and now reduction of hiatal hernia this hospital stay for gastric volvulus. FAMILY HISTORY: Negative for GI malignancy. SOCIAL HISTORY: No alcohol, tobacco or drugs. ALLERGIES: No known drug allergies. MEDICATIONS AT HOME: Enoxaparin, hydrocodone, lisinopril, pantoprazole, MiraLax daily, tramadol p.r. n., ibuprofen p.r.n. She did receive ibuprofen twice a day. PHYSICAL EXAMINATION: VITAL SIGNS: Temperature 98.9, pulse 88, blood pressure 163/86, oxygen saturation 92% on room air. GENERAL: She is in no acute distress, alert and oriented x3. HEENT: Eyes have no scleral icterus. Oropharynx is clear without lesions. NECK: No cervical or supraclavicular lymphadenopathy. LUNGS: Clear to auscultation bilaterally. HEART: Regular rate and rhythm without murmur. ABDOMEN: Soft. She is tender near the incision, otherwise nontender in the lower abdomen. Her christiano l sounds are present but hypoactive. She has a gastrostomy tube in place and appears healthy and rima rounding skin. EXTREMITIES: No lower extremity edema. LABORATORY: White blood cell count on 08/05/2017 was 12.8, hemoglobin is 12.2, platelets 241. LFTs were normal on admission. Her AST was mildly elevated at 64 on 08/05/2017. IMPRESSION: Gastric volvulus secondary to paraesophageal hiatal hernia, status post open reduction a nd hernia repair and a gastrostomy placement. She has had some persistent nausea following the surge ry; however, she is actually doing better today and has not required medication for nausea and his ad vancing her diet to a GI soft diet. RECOMMENDATIONS: 1. Continue proton pump inhibitor. 2. I will hold the ibuprofen for now. 3. If she worsens again, then we can repeat an upper endoscopy; however, she seems to be slowly impr oving at this point.
[2017-08-09] MEDS ORDERED: Bisacodyl 10 MG SUPP PR SCH (18:45)
[2017-08-09] MEDS: Enoxaparin Sodium 40 MG/0.4 ML SYRINGE SC SCH (20:31)
[2017-08-10] MEDS: hydrALAZINE 20 MG/ML VIAL SLOW IVP PRN ×4 (00:02→22:07)
[2017-08-10] MEDS: Lactated Ringer's 1,000 ML IV SCH ×4 (01:11→22:08)
[2017-08-10] MEDS: Lisinopril 20 MG TAB PO SCH ×2 (10:06→20:24)
[2017-08-10] MEDS: Polyethylene Glycol 3350 17 GM Packet PO SCH (10:07)
[2017-08-10] MEDS: Pantoprazole 40 MG VIAL IVP SCH (10:09)
[2017-08-10] MEDS: HYDROcodone/Acetaminophen 7.5/325 mg Tablet PO PRN ×2 (10:18→20:25)
[2017-08-10] MEDS ORDERED: Promethazine 25 MG TAB PO PRN (17:05)
[2017-08-10] MEDS ORDERED: Bisacodyl 10 MG SUPP PR SCH (17:15)
[2017-08-10] MEDS: Scopolamine 1.5 mg/72 hour Patch TD SCH (17:42)
[2017-08-10] MEDS: cloNIDine 0.1 MG TAB PO SCH (20:26)
[2017-08-10] MEDS: Enoxaparin Sodium 40 MG/0.4 ML SYRINGE SC SCH (20:27)
[2017-08-10] MEDS: Acetaminophen 500 MG TAB PO PRN (21:26)
--- NOTE | 2017-08-10 21:53 | PRG ---
DATE OF SERVICE: 08/10/2017 SUBJECTIVE: Ms. Fernando has felt nausea today, but she has tolerated some grilled cheese and other so lid foods; however, she reports small amounts. She has had an unknown nausea medicine today. She di d take hydrocodone. She had only a small bowel movement after the Dulcolax suppository yesterday. OBJECTIVE: VITAL SIGNS: Temperature 98.8, blood pressure 176/90, pulse 92. GENERAL: She is in no acute distress. She is alert and oriented. LUNGS: Clear to auscultation bilaterally. HEART: Regular rate and rhythm. ABDOMEN: Soft, nontender, nondistended. Bowel sounds are present. EXTREMITIES: No lower extremity edema. IMPRESSION: Persistent nausea, status post hiatal hernia repair and correction of gastric volvulus. She is still slowly improving and is tolerating some solid diet. I expect this will just take some more time. She has only had 1 pain pill today and has not taken any nausea medicine today. She only had a small stool output with the Dulcolax yesterday, but has been taking MiraLax and has some assoc iated abdominal bloating with that. RECOMMENDATIONS: 1. We will repeat a Dulcolax suppository and continue this scheduled daily, polyethylene glycol. 2. We will give promethazine 12.5 mg orally as needed. She has not taken this today; however, her p rimary complaint currently is nausea. 3. She is advised to try to cut down on the hydrocodone and just take acetaminophen instead. She jones s not been out of bed today and she was encouraged to ambulate. Hopefully, reduction of opioids and increase ambulation will help with her bowel motility and appetite.
--- NOTE | 2017-08-11 00:48 | CON ---
DATE OF CONSULTATION: 08/10/2017 DATE OF ADMISSION: 08/05/2017 CHIEF COMPLAINT: Severe chest pain. The consultation is requesting blood pressure management. Consulter is Dr. Kalin Victor Jr. HISTORY OF PRESENT ILLNESS: The patient is a 57-year-old female who had undergone a laparoscopic Nis sen fundoplication in 12/2016 for repair of a large hiatal hernia. She reports that over the last 2 weeks, she has been having intermittent chest pain, nausea, dysphagia of solid food. On the day of a dmission, she tried to eat a burrito, had severe pain and nausea, but could not vomit. She was devel oping dry heaves and loose stools, had been going on for approximately 2 weeks. Her blood pressures were shooting to the roof, but she did not have any black tarry stools or any fever. PAST MEDICAL HISTORY: Significant for anxiety, GI bleed caused by hiatal hernia, colitis, gastric ul cer, hypertension, depression, and chronic back pain. PAST SURGICAL HISTORY: Included section x2, left shoulder surgery, cholecystectomy, and a h iatal hernia repair. SOCIAL HISTORY: She is , does not smoke, and only drinks occasional alcohol. ALLERGIES: She is allergic to no known drug allergies. MEDICATIONS: Her medications at the time of admission included doxepin, BuSpar, Topamax, citalopram, hydroxyzine, omeprazole, and lisinopril. At the time of her admission, her assessment was gastric volvulus with severe pain, worsening from rsahmi wel ischemia. The plan was to attempt a laparoscopic repair, but ended up in an open repair. The op erative day was 08/05/2017. She had an upper GI on 08/06/2017, which showed no evidence of any leaka ge and a gastrotomy tube was then placed. Over the next couple of days, she developed nausea and req uired IV fluids and antiemetics. A scopolamine patch was put in place. A G-tube was also placed. T his did not improve her circumstances. Dr. Marie saw her in consultation on 08/09/2017. He felt irene t she has had basically a postop ileus and suggested that we could slowly advance her diet on that da y. He suggested continuing the proton pump inhibitor and holding any NSAIDs. By 08/10/2017, she wa s having significant elevations in blood pressure to the tune of 172/93 and 183/89, and her lisinopri l which had been increased was not controlling this. Dr. Foreman then began her on clonidine 0.1 mg b. i.d. and q.1 hour p.r.n. systolic over 160. I was asked to see the patient in consultation by Dr. Marta sprague on 08/10/2017. PHYSICAL EXAMINATION: At the time of my exam, VITAL SIGNS: Her blood pressure had remained high and required hydralazine IV to control it. She wa s having moderate abdominal pain and was emotionally upset; however, she was alert, responsive, and o riented x3. HEENT: Normocephalic, atraumatic. Pupils are equal, round, and reactive to light. Extraocular musc les are intact. TMs, nares, pharynx are clear. NECK: Supple. Trachea midline. CHEST: Clear to auscultation. BREASTS: Deferred. HEART: Regular rate and rhythm without murmur. ABDOMEN: With a clean surgical incision that did not show any erythema or discharge. Her abdomen di d however have some mild distention and tympanic, as well as tenderness. The patient states she has been up walking. EXTREMITIES: Without clubbing, cyanosis, or edema. Normal range of motion present. SKIN: Without acute rashes or lesions. NEUROLOGIC: Nonfocal and intact. ASSESSMENT: 1. Hypertension driven by pain. 2. Mild postoperative gastric dysmotility, which is resolving. PLAN: To continue the Klonopin 0.1 mg b.i.d. Continue Klonopin 0.1 q.1 hour p.r.n. systolic over 16 0. We will continue having the hydralazine IV as a fallback should she not tolerate p.o. medication or it remained ineffective. We will serially re-evaluate her and possibly add amlodipine 5 to 10 mg a day if her hypertension persist. She has been encouraged to get up and ambulate as much as possibl e. The time necessary to review the chart, examining the patient, and performing the dictation is approx imately 45 minutes.
[2017-08-11] MEDS: cloNIDine 0.1 MG TAB PO PRN (04:59)
[2017-08-11] MEDS: hydrALAZINE 20 MG/ML VIAL SLOW IVP PRN (06:47)
[2017-08-11] MEDS: HYDROcodone/Acetaminophen 7.5/325 mg Tablet PO PRN (08:35)
[2017-08-11] MEDS: Lisinopril 20 MG TAB PO SCH ×2 (08:35→20:00)
[2017-08-11] MEDS: Lactated Ringer's 1,000 ML IV SCH ×3 (08:35→21:12)
[2017-08-11] MEDS: cloNIDine 0.1 MG TAB PO SCH ×2 (08:35→20:01)
[2017-08-11] MEDS: Polyethylene Glycol 3350 17 GM Packet PO SCH (08:35)
[2017-08-11] MEDS: Amlodipine 10 MG TAB PO SCH (08:38)
[2017-08-11] MEDS ORDERED: Lorazepam 1 MG TAB PO SCH (09:15)
[2017-08-11] MEDS: Acetaminophen 500 MG TAB PO PRN ×2 (11:47→19:56)
[2017-08-11] MEDS: Lorazepam 1 MG TAB PO SCH ×2 (15:02→20:00)
[2017-08-11] MEDS: Enoxaparin Sodium 40 MG/0.4 ML SYRINGE SC SCH (19:59)
--- NOTE | 2017-08-11 20:40 | PRG ---
DATE OF SERVICE: 08/11/2017 SUBJECTIVE: Ms. Fernando had a much better day today. She tolerated a solid diet. She sometimes feel s some gurgling in her chest as she is swallowing. She has no abdominal pain currently. She did amb ulate around the floor today. She had some acute anxiety today and she was treated with Ativan with significant improvement. Overall, she appears much better. OBJECTIVE: VITAL SIGNS: Temperature 97.9, pulse 76, blood pressure 148/78. GENERAL: She is in no acute distress, awake and alert. LUNGS: Clear to auscultation bilaterally. HEART: Regular rate and rhythm. ABDOMEN: Soft, nontender, nondistended, bowel sounds are present. EXTREMITIES: No lower extremity edema. IMPRESSION: 1. Constipation is now resolved. She had a good bowel movement following her Dulcolax suppository y . She felt much better after that. She will continue with the MiraLax at this point. 2. Nausea, currently resolved. RECOMMENDATIONS: 1. Continue MiraLax. 2. She is encouraged to continue ambulation and try to minimize opioid pain medications that may aff ect bowel motility. 3. It is anticipated that she will discharge home tomorrow. I will sign off. Please call if GI can be of assistance.
[2017-08-11] MEDS ORDERED: Zolpidem Tartrate 5 MG TAB PO SCH (23:45)
[2017-08-12] MEDS: cloNIDine 0.1 MG TAB PO PRN (06:12)
[2017-08-12] MEDS: Polyethylene Glycol 3350 17 GM Packet PO SCH (09:31)
[2017-08-12] MEDS: Amlodipine 10 MG TAB PO SCH (09:32)
[2017-08-12] MEDS: Lisinopril 20 MG TAB PO SCH (09:32)
[2017-08-12] MEDS: cloNIDine 0.1 MG TAB PO SCH (09:32)
[2017-08-12] MEDS: Lorazepam 1 MG TAB PO SCH (09:33)
[2017-08-12 11:48] VITALS: BP 165/86; TEMP 98.1
[2017-08-12] MEDS: HYDROcodone/Acetaminophen 7.5/325 mg Tablet PO PRN (12:08)
--- NOTE | 2017-08-12 14:02 | DIS ---
DISCHARGE DIAGNOSES: 1. Gastric volvulus with obstruction. 2. Paraesophageal hernia. 3. Morbid obesity. 4. Postoperative nausea, vomiting. HOSPITAL COURSE: The patient was admitted, taken emergently to the operating room where she underwen t an attempted laparoscopic reduction. This was not successful. She had to be converted to an open procedure for reduction of the paraesophageal hernia causing the volvulus. In order to reduce this f rom happening, again a gastrostomy tube was placed as well. Postoperatively, she had difficulty with nausea and vomiting. Multiple antiemetics were tried, but there was a national back order on Zofran . We do not have the ability to give her that. I did have GI look at her and she started getting be tter on different medications. She is now discharged home in good condition on oral Zofran which the y do have and hydrocodone. She will follow up with me in 2 weeks.
[2017-08-12] MEDS: Lactated Ringer's 1,000 ML IV SCH ×2 (15:15)
[2017-08-12] MEDS ORDERED: Zolpidem Tartrate 5 MG TAB PO SCH (21:00)
== END 2017-08-12 14:03 | disposition home or self-care (01) | DRG 328 ==
LOC: ERS 20:12 → SDC 23:47 → SURG A 08-05 02:09
PROVIDERS: ADMIT Surgery; ATTEND Surgery
PROC: 0BQT0ZZ Repair Diaphragm, Open Approach (ICD-10-PCS; principal; 2017-08-05)
PROC: 0WJP4ZZ Inspection of Gastrointestinal Tract, Percutaneous Endoscopic Approach (ICD-10-PCS; 2017-08-05)
PROC: 0DH60UZ Insertion of Feeding Device into Stomach, Open Approach (ICD-10-PCS; 2017-08-05)
DX: K56.2 Volvulus (principal); E66.01 Morbid (severe) obesity due to excess calories; K44.9 Diaphragmatic hernia without obstruction or gangrene; K91.0 Vomiting following gastrointestinal surgery; Y83.8 Other surgical procedures as the cause of abnormal reaction of the patient, or of later complication, without mention of misadventure at the time of the procedure; F41.9 Anxiety disorder, unspecified; Z87.11 Personal history of peptic ulcer disease; F32.9 Major depressive disorder, single episode, unspecified; M54.9 Dorsalgia, unspecified; G89.29 Other chronic pain; E66.9 Obesity, unspecified; Z53.31 Laparoscopic surgical procedure converted to open procedure; Z90.49 Acquired absence of other specified parts of digestive tract
CPT/HCPCS: 36415; 71045; 71046; 74177; 74241; 80053; 82550; 82553; 83880; 84484; 85025; 93005; 96374; 96375; 96376; A4216; C9113; J0360; J1100; J1650; J1885; J1940; J2001; J2250; J2270; J2405; J2704; J3010; J7050; J8540; Q0162; S0028

== ENCOUNTER 2017-08-21 18:27 | Emergency (ER) | payer BC ==
[~2017-08-21 18:27] MED LIST changes: +Iopamidol 370 76% 50 ML VIAL FS ONE
[2017-08-21 19:41] LABS: #Eosinphils 0.4 thou/uL (0.0-0.7); #Lymphocytes 1.4 thou/uL (1.20-3.40); #Monocytes 0.8 thou/uL (0.11-0.59); #Neutrophils 4.6 thou/uL (1.40-6.50); %Basophils 0.2 % (0.0-1.0); %Eosinophils 5.3 % (0.0-10.0); %Lymphocytes 19.7 % (21.0-51.0); %Monocytes 10.9 % (0.0-10.0); Hemoglobin 11.6 g/dL (12.0-16.0); Mean Corpuscular HGB CONC 33.6 g/dL (32.0-36.0); Mean Corpuscular Hemoglobin 25.7 pg (27.0-31.0); Mean Corpuscular Volume 76.5 fl (81.0-99.0); Mean Platelet Volume 6.4 fL (7.4-10.4); Platelet Count 333 thou/uL (130-400); RBC Distribution Width 15.5 % (11.5-14.5); White Blood Cell (WBC) Count 7.2 thou/uL (4.8-10.8)
[2017-08-21 20:01] LABS: ALT (SGPT) 28 U/L (8-55); AST (SGOT) 20 U/L (5-34); Albumin 3.8 g/dL (3.5-5.0); Alkaline Phosphatase 141 U/L (40-150); Anion Gap 12 mmol/L (10-20); BUN (Urea Nitrogen) 9 mg/dL (9.8-20.1); Bilirubin, Total 0.4 mg/dL (0.2-1.2); Calc. Creatinine Clearance 0 mL/min (70-130); Calcium 9.4 mg/dL (7.8-10.44); Carbon Dioxide 26 mmol/L (22-29); Chloride 101 mmol/L (98-107); Estimated GFR-MDRD 87; Globulin 3.3 g/dL (2.4-3.5); Glucose 114 mg/dL (70-105); Potassium 3.2 mmol/L (3.5-5.1); Protein, Total 7.1 g/dL (6.0-8.3); Sodium 136 mmol/L (136-145)
--- NOTE | 2017-08-21 21:34 | CT ---
ABDOMEN AND PELVIS CT SCAN WITH IV CONTRAST: HISTORY: A 57-year-old female with a history of gastric tube falling out. Hiatal hernia. COMPARISON: 08/04/2017 FINDINGS: Minimal pleural thickening and mild pleural-based stranding in the lung bases, probably chronic. The re is evidence for a hiatal hernia, although the extensive gastric volvulus seen at the time of the p rior 08/04/2017 study is no longer present. Status post cholecystectomy. The liver is unremarkable. The pancreas and spleen are unremarkable. Stable left renal cysts. No renal calculus or acute obstruction. Normal appearing appendix. Multiple radiopaque pills within the colon. There is some thickening of the left anterior abdominal wall, at the site of the prior percutaneous gastric tube pl acement, but no evidence for abnormal fluid collection or abscess. No free intraperitoneal air or ex traluminal gas. IMPRESSION: 1. Moderate sized hiatal hernia, although the previously noted extensive gastric volvulus seen at th e time of the prior study is no longer present. 2. There is some thickening of the left upper anterior abdominal wall, at the site of the prior lucas rostomy tube placement, but no evidence for abscess, extraluminal gas, or free intraperitoneal air. 3. No evidence for other significant acute process within the abdomen or pelvis. POS: CARLOS
[2017-08-21] MEDS ORDERED: Potassium Chloride 20 MEQ TAB ONE (21:41)
== END 2017-08-21 21:55 | disposition home or self-care (01) ==
LOC: ERS 18:27
DX: Z43.1 Encounter for attention to gastrostomy (principal); K21.9 Gastro-esophageal reflux disease without esophagitis; I10 Essential (primary) hypertension; Z79.899 Other long term (current) drug therapy
CPT/HCPCS: 36415; 74177; 80053; 85025; B4087

== ENCOUNTER 2018-01-24 10:04 | Outpatient (CLI) | payer BC ==
[2018-01-24 11:23] LABS: ALT (SGPT) 11 U/L (8-55); AST (SGOT) 13 U/L (5-34); Albumin 4.2 g/dL (3.5-5.0); Alkaline Phosphatase 85 U/L (40-150); Anion Gap 11 mmol/L (10-20); BUN (Urea Nitrogen) 13 mg/dL (9.8-20.1); Bilirubin, Total 0.2 mg/dL (0.2-1.2); Calc. Creatinine Clearance 0 mL/min (70-130); Calcium 9.8 mg/dL (7.8-10.44); Carbon Dioxide 29 mmol/L (22-29); Chloride 104 mmol/L (98-107); Estimated GFR-MDRD 73; Globulin 3.2 g/dL (2.4-3.5); Glucose 109 mg/dL (70-105); Potassium 3.4 mmol/L (3.5-5.1); Protein, Total 7.4 g/dL (6.0-8.3); Sodium 141 mmol/L (136-145)
[2018-01-24 11:49] LABS: #Basophils 0.1 thou/uL (0.0-0.2); #Eosinphils 0.2 thou/uL (0.0-0.7); #Lymphocytes 1.4 thou/uL (1.20-3.40); #Monocytes 0.5 thou/uL (0.11-0.59); #Neutrophils 2.9 thou/uL (1.40-6.50); %Basophils 1.4 % (0.0-1.0); %Eosinophils 3.7 % (0.0-10.0); %Lymphocytes 28.1 % (21.0-51.0); %Monocytes 9.7 % (0.0-10.0); %Neutrophils 57.2 % (42.0-75.0); Hemoglobin 11.8 g/dL (12.0-16.0); Hypochromia SLIGHT = 6-15 cells (100X) (0-5/hpf); MDiff Complete? YES; Mean Corpuscular HGB CONC 32.1 g/dL (32.0-36.0); Mean Corpuscular Hemoglobin 23.8 pg (27.0-31.0); Mean Corpuscular Volume 74.1 fL (78.0-98.0); Mean Platelet Volume 8.3 fL (7.4-10.4); Microcytosis SLIGHT = 6-15 cells (100X) (0-5/hpf); PLT Morphology Comment Appears Adequate; Platelet Count 272 thou/uL (130-400); RBC Distribution Width 15.7 % (11.5-14.5); Red Blood Cell (RBC) Count 4.96 mill/uL (4.20-5.40); White Blood Cell (WBC) Count 5.1 thou/uL (4.8-10.8)
== END 2018-01-24 10:05 | disposition home or self-care (01) ==
LOC: LABBT 10:04
PROVIDERS: ATTEND Surgery
DX: Z01.818 Encounter for other preprocedural examination (principal); K43.9 Ventral hernia without obstruction or gangrene
CPT/HCPCS: 80053; 85025; 93005; 93010

== ENCOUNTER 2018-02-03 05:33 | Inpatient (IN) | payer BC ==
[2018-02-03] MEDS ORDERED: CEFAZOLIN/Water 2 GM/20 ML SYRINGE ONE (06:48)
[2018-02-03] MEDS ORDERED: Fentanyl 100 MCG/2 ML VIAL ONE ×5 (06:52→10:36)
[2018-02-03] MEDS ORDERED: Famotidine/PF 20 mg/2ml Vial ONE (07:27)
[2018-02-03] MEDS ORDERED: Midazolam HCl 2 mg/2 ml Vial ONE (07:27)
[2018-02-03] MEDS ORDERED: Bupivacaine/Epinephrine 0.25% 30 ML VIAL ONE (07:38)
[2018-02-03] MEDS ORDERED: Dextrose 50% Abboject 50 ML SYRINGE SLOW IVP PRN (09:26)
[2018-02-03] MEDS ORDERED: HYDROcodone/Acetaminophen 10/325 mg Tablet PO PRN (09:26)
[2018-02-03] MEDS ORDERED: Dextrose 5% in Water 1,000 ML IV PRN (09:26)
[2018-02-03] MEDS ORDERED: Promethazine HCl 25 MG/ML VIAL IM PRN ×2 (09:26→09:39)
[2018-02-03] MEDS ORDERED: hydrALAZINE 20 MG/ML VIAL SLOW IVP PRN (09:26)
[2018-02-03] MEDS ORDERED: Ondansetron HCl/PF 4 MG/2 ML Vial IVP PRN (09:26)
[2018-02-03] MEDS ORDERED: CEFAZOLIN 2 GM in Sodium Chloride 0.9% 100 ML IVPB SCH (09:30)
[2018-02-03] MEDS ORDERED: hydrALAZINE 20 MG/ML VIAL ONE (09:34)
[2018-02-03] MEDS ORDERED: Promethazine HCl 25 MG/ML VIAL SLOW IVP PRN (09:39)
[2018-02-03] MEDS ORDERED: HYDROmorphone 2 MG/ML VIAL SLOW IVP PRN (09:39)
[2018-02-03] MEDS ORDERED: Meperidine HCl/PF 25 MG/ML VIAL SLOW IVP PRN (09:39)
--- NOTE | 2018-02-03 11:28 | OP ---
PREOPERATIVE DIAGNOSIS: Incisional ventral hernia. SURGEON: Kalin Victor M.D. PROCEDURE PERFORMED: Laparoscopic ventral hernia repair with mesh. INDICATIONS: A 58-year-old female who had an emergency repair of an incarcerated paraesophageal shirley ia who developed an incisional hernia. FINDINGS: The actual defect was about 4 cm. It was closed within #1 V-Loc and a 15 cm piece of mesh used. PROCEDURE IN DETAIL: After informed consent was obtained, the patient was taken to the operating dhaval m, given general endotracheal anesthesia, placed in the supine position. Abdomen and flank were prep ped and draped in usual fashion. Local anesthesia infiltrated subcutaneously and deep. A 12 mm inci tammi was performed on right flank. Veress needle inserted. Drop test performed. Pneumoperitoneum c reated to a volume of 2 liters of carbon dioxide. Utilizing a bladeless 12 mm trocar and 0 degree la paroscope, direct visual entry to the abdominal cavity was performed. Pneumoperitoneum was then crea lynnette to a pressure of 15 mmHg. Zero degree laparoscope inserted under direct vision, two 5 mm ports p laced, one right lower quadrant, one right upper quadrant. A laparoscopic lysis of adhesions was per formed utilizing the LigaSure to completely expose the defect and a normal peritoneal surface. The f alciform ligament also was taken down partially. Then, the pressure was dropped to 10 mmHg and #1 18 -inch V-Loc was inserted intra-abdominally and using intracorporeal suturing. The defect was closed transversely from left to right. Then the needle was removed and a 15 cm Proceed circular mesh patch was fashioned. It was hydrated and then 4 sutures of 0 Ethibond placed at the four corners. It was rolled, inserted intra-abdominally then unrolled. Then using the GraNee needle, the sutures were in dividually grasped to optimally position the mesh to cover the defect. Then the mesh was further sec ured to the abdominal wall with the SecureStrap Tacker. Hemostasis was assured. Trocars and retract ors removed. The skin closed with interrupted 4-0 Rapide. Dermabond applied. The patient tolerated the procedure well and was transferred to recovery in good condition. Sponge and needle count verif ied correct x2.
[2018-02-03 11:31] VITALS: BMI 29.2
[2018-02-03] MEDS: D5 1/2 NS w/20 mEq KCL 1,000 ML IV SCH ×2 (12:05→18:29)
[2018-02-03] MEDS: Ketorolac Tromethamine 30 MG/ML VIAL IVP SCH ×2 (12:05→17:09)
[2018-02-03] MEDS: Morphine 4 MG/ML VIAL SLOW IVP PRN ×2 (13:42→17:08)
[2018-02-03] MEDS ORDERED: Ondansetron HCl/PF 4 MG/2 ML Vial ONE (14:28)
[2018-02-03] MEDS ORDERED: Dexamethasone 20 MG/5 ML VIAL ONE (14:28)
[2018-02-03] MEDS ORDERED: Lidocaine 1% PF 5 ML VIAL ONE (14:28)
[2018-02-03] MEDS ORDERED: Ketorolac Tromethamine 30 MG/ML VIAL ONE (14:28)
[2018-02-03] MEDS ORDERED: Metoprolol Tartrate 5 MG/5 ML VIAL ONE (14:28)
[2018-02-03] MEDS ORDERED: PROPOFOL 200 MG/20 ML VIAL ONE (14:28)
[2018-02-03] MEDS ORDERED: Glycopyrrolate 0.2 MG/ML 5 ML SYRINGE ONE (14:28)
[2018-02-03] MEDS: CEFAZOLIN/Water 2 GM/20 ML SYRINGE SLOW IVP SCH ×2 (15:25→23:40)
[2018-02-03] MEDS: Famotidine/PF 20 mg/2ml Vial SLOW IVP SCH (20:43)
[2018-02-03] MEDS: Famotidine 20 MG TAB PO SCH (21:35)
[2018-02-04] MEDS: Ketorolac Tromethamine 30 MG/ML VIAL IVP SCH ×2 (00:09→06:18)
[2018-02-04] MEDS: HYDROcodone/Acetaminophen 10/325 mg Tablet PO PRN ×2 (00:10→06:19)
[2018-02-04 05:06] LABS: #Lymphocytes 1.6 thou/uL (1.20-3.40); #Monocytes 0.7 thou/uL (0.11-0.59); %Eosinophils 0.4 % (0.0-10.0); %Lymphocytes 14.4 % (21.0-51.0); %Monocytes 6.2 % (0.0-10.0); %Neutrophils 79.1 % (42.0-75.0); Hemoglobin 10.2 g/dL (12.0-16.0); Mean Corpuscular HGB CONC 31.9 g/dL (32.0-36.0); Mean Corpuscular Hemoglobin 23.6 pg (27.0-31.0); Mean Corpuscular Volume 74.2 fL (78.0-98.0); Platelet Count 270 thou/uL (130-400); Red Blood Cell (RBC) Count 4.31 mill/uL (4.20-5.40); White Blood Cell (WBC) Count 11.3 thou/uL (4.8-10.8)
[2018-02-04 05:19] LABS: Anion Gap 8 mmol/L (10-20); BUN (Urea Nitrogen) 11 mg/dL (9.8-20.1); Calc. Creatinine Clearance 88 mL/min (70-130); Calcium 8.6 mg/dL (7.8-10.44); Carbon Dioxide 25 mmol/L (22-29); Chloride 106 mmol/L (98-107); Estimated GFR-MDRD 72; Glucose 144 mg/dL (70-105); Potassium 3.2 mmol/L (3.5-5.1); Sodium 136 mmol/L (136-145)
[2018-02-04] MEDS ORDERED: Enoxaparin Sodium 40 MG/0.4 ML SYRINGE SC SCH (06:00)
[2018-02-04] MEDS: D5 1/2 NS w/20 mEq KCL 1,000 ML IV SCH (06:17)
[2018-02-04] MEDS: CEFAZOLIN/Water 2 GM/20 ML SYRINGE SLOW IVP SCH (06:18)
[2018-02-04 09:20] VITALS: BP 170/82; TEMP 98
[2018-02-04] MEDS: Famotidine 20 MG TAB PO SCH (09:22)
[2018-02-04] MEDS: Famotidine/PF 20 mg/2ml Vial SLOW IVP SCH (09:24)
--- NOTE | 2018-02-04 15:30 | DIS ---
DISCHARGE DIAGNOSIS: Incisional ventral hernia. PROCEDURES DURING ADMISSION: Laparoscopic ventral hernia repair with mesh. HOSPITAL COURSE: The patient was admitted. She was given IV fluids, IV pain medicines. Her pain is now better. She is tolerating pain with p.o. meds. She is tolerating liquids well. She is afebril e. She is discharged home in good condition on hydrocodone and Zofran. She will follow up with me david hassan 2 weeks.
[2018-02-05] MEDS ORDERED: Enoxaparin Sodium 40 MG/0.4 ML SYRINGE SC SCH (09:00)
== END 2018-02-04 11:45 | disposition home or self-care (01) | DRG 355 ==
LOC: SDC 05:33 → SURG A 11:09
PROVIDERS: ADMIT Surgery; ATTEND Surgery
PROC: 0WUF4JZ Supplement Abdominal Wall with Synthetic Substitute, Percutaneous Endoscopic Approach (ICD-10-PCS; principal; 2018-02-03)
DX: K43.6 Other and unspecified ventral hernia with obstruction, without gangrene (principal)
CPT/HCPCS: 36415; 80048; 85025; J0131; J0360; J1100; J1650; J1885; J2001; J2250; J2270; J2405; J2704; J3010; S0028

== ENCOUNTER 2018-11-01 10:15 | Outpatient (CLI) | payer BC, OTHER ==
--- NOTE | 2018-11-01 10:31 | RAD ---
XR Lumbar Spine 2 Or 3 View: 11/01/2018 12:00 AM CLINICAL INDICATION: Low back pain COMPARISON: None. FINDINGS: Fracture:No fracture. Arthropathy:Mild arthropathy. Accentuation of lumbar lordosis. Incidental findings: There is a calcification, localizing to the mid left abdomen, not further locali zed. Presumed phleboliths overlie the pelvis. Moderate retained fecal material in the colon. IMPRESSION: 1. No acute osseous abnormality. 2. Additional details are described above.
== END 2018-11-01 10:16 | disposition home or self-care (01) ==
LOC: BICRAD 10:15
PROVIDERS: ATTEND Internal Medicine
DX: Z02.71 Encounter for disability determination (principal); M47.816 Spondylosis without myelopathy or radiculopathy, lumbar region; K59.00 Constipation, unspecified; M40.56 Lordosis, unspecified, lumbar region; I70.90 Unspecified atherosclerosis
CPT/HCPCS: 72100

== ENCOUNTER 2019-07-31 23:02 | Observation (INO) | payer BC ==
[2019-07-31 23:45] LABS: Hemoglobin 12.2 g/dL (12.0-16.0); Mean Corpuscular HGB CONC 32.4 g/dL (32.0-36.0); Mean Corpuscular Hemoglobin 24.2 pg (27.0-31.0); Mean Corpuscular Volume 74.8 fL (78.0-98.0); Mean Platelet Volume 7.7 fL (7.4-10.4); Platelet Count 250 thou/uL (130-400); Red Blood Cell (RBC) Count 5.02 mill/uL (4.20-5.40); White Blood Cell (WBC) Count 13.7 thou/uL (4.8-10.8)
[2019-08-01 00:01] LABS: #Eosinphils 0.1 thou/uL (0.0-0.7); #Monocytes 0.9 thou/uL (0.11-0.59); #Neutrophils 11.7 thou/uL (1.40-6.50); %Basophils 0.1 % (0.0-1.0); %Eosinophils 0.5 % (0.0-10.0); %Lymphocytes 7.6 % (21.0-51.0); %Monocytes 6.6 % (0.0-10.0); %Neutrophils 85.2 % (42.0-75.0); MDiff Complete? YES; Microcytosis SLIGHT = 6-15 cells (100X) (0-5/hpf)
[2019-08-01 00:07] LABS: ALT (SGPT) 8 U/L (8-55); AST (SGOT) 12 U/L (5-34); Albumin 4.2 g/dL (3.5-5.0); Alkaline Phosphatase 74 U/L (40-110); Anion Gap 15 mmol/L (10-20); BUN (Urea Nitrogen) 11 mg/dL (9.8-20.1); Bilirubin, Total 0.3 mg/dL (0.2-1.2); Calc. Creatinine Clearance 0 mL/min (70-130); Calcium 9.6 mg/dL (7.8-10.44); Carbon Dioxide 23 mmol/L (22-29); Chloride 101 mmol/L (98-107); Estimated GFR-MDRD 51; Globulin 3.6 g/dL (2.4-3.5); Glucose 141 mg/dL (70-105); Potassium 3.3 mmol/L (3.5-5.1); Protein, Total 7.8 g/dL (6.0-8.3); Sodium 136 mmol/L (136-145)
[2019-08-01 01:22] LABS: Amphetamine Not Detected (NotDetected); Barbiturates Screen Not Detected (NotDetected); Benzodiazepine Screen Not Detected (NotDetected); Cocaine Metabolite Screen Not Detected (NotDetected); Medtox Control Line Valid? VALID (VALID); Medtox Reader # READER 4; Methadone Not Detected (NotDetected); Methamphetamine Not Detected (NotDetected); Opiate Screen Not Detected (NotDetected); Oxycodone Screen Not Detected (NotDetected); Phencyclidine (PCP) Not Detected (NotDetected); THC/Cannabinoid Screen Not Detected (NotDetected); Tricyclic Screen Not Detected (NotDetected)
[2019-08-01 01:23] LABS: Bacteria/HPF None Seen HPF (None Seen); Bilirubin Negative (Negative); Blood, Urine 1+ (Negative); Clarity Clear (Clear); Glucose, Urine (Dipstick) Normal (Negative); Leukocyte 75 Leu/uL (Negative); Nitrite Negative (Negative); Protein, Urine (Dipstick) 70 mg/dL (Neg-Trace); Squamous Epithelial None Seen HPF (0-3); Urobilinogen Normal mg/dL (Less than 2)
[2019-08-01] MEDS ORDERED: hydrALAZINE 20 MG/ML VIAL ONE (02:02)
[2019-08-01] MEDS: Dextrose 5 % And 0.9 % NaCl 1,000 ML IV SCH ×2 (03:48→11:20)
[2019-08-01 03:49] VITALS: BMI 29.2
[2019-08-01] MEDS ORDERED: Ketorolac Tromethamine 30 MG/ML VIAL IVP PRN (04:53)
--- NOTE | 2019-08-01 07:50 | CON ---
DATE OF CONSULTATION: 08/01/2019 PRIMARY CARE PHYSICIAN: Luis Foreman MD REASON FOR CONSULT: Large left UPJ proximal ureteral calculi. HISTORY OF PRESENT ILLNESS: Ms. 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 Pain is rated 8/ 10 to 9/10 on the pain scale. She presented with hypertension, afebrile, pain adequately controlled with Toradol. As she is recovering addict, narcotics were not provided. Currently, she continues to have discomfort despite Toradol, however, this is manageable. She denies prior history of kidney stones, nausea, vomiting, fever, gross hematuria, history of recurrent UTI. She denies history of tobacco abuse and lives with her family. Pain is characterized as intermittent, stabbing, pressure-like sensation. Workup in the emergency room demonstrated normal renal function, urinalysis, culture has been obtained. CT stone protocol does demonstrate a large left UPJ stone about 1.2-1.3 cm in greatest dimension with perinephric stranding. PAST MEDICAL HISTORY: 1. History of amphetamine substance abuse, currently in rehab. 2. Anxiety. 3. GERD. 4. Large hiatal hernia. 5. History of severe GI bleed requiring blood transfusions. 6. Gastric ulcers in the past. 7. Proctocolitis. 8. Hypertension. 9. Depression. 10. Chronic back pain. PAST SURGICAL HISTORY: x2, shoulder surgery, cyst removal of the chest, cholecystectomy, laparoscopic Cari fundoplication, December [address] Victor. SOCIAL HISTORY: No tobacco, alcohol, history of amphetamine abuse, currently in rehab. MEDICATIONS: Previous outpatient medications include; 1. Doxepin. 2. BuSpar. 3. Topamax. 4. Citalopram. 5. Hydroxyzine. 6. Omeprazole. 7. Lisinopril. ALLERGIES: NO KNOWN DRUG ALLERGIES. REVIEW OF SYSTEMS: Ten-point review of systems as above, otherwise noncontributory. FAMILY HISTORY: Noncontributory. PHYSICAL EXAMINATION: VITAL SIGNS: She is afebrile in the emergency room, highest blood pressure was 241/135, 96, 17, 97.8. Pain rated at 8/10 on the pain scale. HEENT: Grossly unremarkable. GENERAL: The patient is currently sleeping, easily arousable. She does have increased breathing with anxiety. HEART: Regular rate. LUNGS: Clear. ABDOMEN: Soft. No rigidity. No rebound. No significant CVA tenderness, however, subjective discomfort is in the left lower back. EXTREMITIES: No cyanosis, clubbing, or edema. NEUROLOGIC: No gross focal deficits. MUSCULOSKELETAL: Equal and symmetric strength. PSYCHIATRIC: Appears to be appropriate and intact, cooperative to physical exam. PERTINENT LABS AND IMAGING: White count 13, hemoglobin 12, and platelet 250, 85 segs. Creatinine is 1.1. Calcium is within normal limits. Urinalysis demonstrates pH of 6.0, 75 leukocytes, 11-20 rbc's, 4 to 6 wbc's, negative epithelials, negative bacteria. Urine tox screen negative. CT of the abdomen and pelvis, official report is pending, Imaging I reviewed myself. There is evidence of left perinephric stranding of hydronephrosis due to a large left UPJ stone measuring about 6 mm x 1.3 cm in greatest dimension. Hounsfield unit over 1000. KUB demonstrates left 1 cm stone at the level of L2-L3. CT of the abdomen and pelvis from December 2016, which I also reviewed myself demonstrating no evidence of hydronephrosis. No renal calculi. 1. A 1.7 cm left hyperdense renal cyst. 2. Diverticulosis. Stress test nuclear study, November 2016, demonstrates no ischemia, normal EF. IMPRESSION: 1. Ms. Fernando is a 59-year-old female with history of anxiety, amphetamine substance abuse, currently in rehab. 2. presents with left acute colic due to a large left UPJ stone. Given its large nature, it is unlikely that she will pass her 1.3 cm stone. Moreover, we need to refrain from narcotic use, as she is recovering addict. She agrees. Therefore, I do recommend ureteral stent, usually patients with ureteral stent are well managed with Motrin or Tylenol. When urine culture negative, I informed the patient that we will perform ureteroscopy, laser lithotripsy at a later date. I anticipate the patient can be discharged after ureteral stent, if cleared by her primary care physician, Dr. Foreman as she does have hypertension. Her hypertension is likely exacerbated by pain component as well. Job ID: [id number] [facility]
--- NOTE | 2019-08-01 07:50 | CT ---
PRELIMINARY REPORT/[facility]/EMERGENCY AFTER HOURS PROCEDURE EXAM: CT Abdomen and Pelvis Without Intravenous Contrast CLINICAL HISTORY: F60, PT REPORTS L FLANK PAIN ONSET THIS EVENING. N/V. DENIES DYSURIA. TECHNIQUE: Axial computed tomography images of the abdomen and pelvis without intravenous contrast. CONTRAST: None. COMPARISON: None provided. FINDINGS: LUNG BASES: No basilar airspace consolidation or pleural effusion. LIVER: Unremarkable. GALLBLADDER AND BILE DUCTS: Cholecystectomy clips in the gallbladder fossa. No ductal dilation. PANCREAS: Unremarkable. SPLEEN: Unremarkable. ADRENAL GLANDS: Unremarkable. KIDNEYS, URETERS, AND BLADDER: 1.3 cm calculus of the left renal pelvis. Moderate left-sided pelvoca liectasis. Fat stranding around the left kidney and pelvis. The right kidney is normal. STOMACH AND BOWEL: Moderate hiatal hernia. No obstruction. No wall thickening. No CT evidence of col itis or acute diverticulitis. Colonic diverticulosis. APPENDIX: No CT evidence for appendicitis. PERITONEUM: No free fluid. No free air. LYMPH NODES: No lymphadenopathy. REPRODUCTIVE: Unremarkable as visualized. VASCULATURE: No aortic aneurysm. Mild atherosclerosis. ABDOMINAL WALL AND SOFT TISSUES: Unremarkable. BONES: No fracture or suspicious osseous abnormality. Multilevel mild degenerative disc disease. IMPRESSION: Obstructive 1.3 cm calculus at the left renal pelvis with moderate pelvocaliectasis. Left-sided emma nephric and peripelvic edema and/or inflammation. Moderate hiatal hernia. Colonic diverticulosis with no evidence of diverticulitis. ELECTRONICALLY SIGNED BY: Basil Agustin MD Aug 01, 2019 1:00:17 AM CDT This report is intended for review by the ordering physician only, in accordance of law. If you recei ve this report in error, please call [facility] at [phone]. FINAL REPORT Exam: Abdomen CT without contrast Pelvic CT without contrast HISTORY: Left flank pain, onset this evening. COMPARISON: None FINDINGS: Abdomen CT: Lung bases:No masses or consolidation Heart size: Normal heart size Aorta: Normal caliber. No periaortic fat stranding Solid organs: Grossly no abnormality Lymph nodes: No gastrohepatic, retrocrural or periportal lymphadenopathy. Upper normal right lower qu adrant mesenteric lymph nodes, likely reactive Gallbladder: Surgically absent Mesentery: No mass, lymphadenopathy, free air or free fluid Kidneys: Right kidney: No obstructive uropathy. Left kidney: 1.0 x 0.7 cm left ureterovesicular calculus with associated moderate left hydronephrosis . Exophytic cyst emanates from the lower pole of the left kidney, measuring 2.4 x 2.0 cm. Alimentary canal: No evidence of bowel obstruction. Normal caliber appendix. CT PELVIS: No mass, adenopathy, free air or free fluid. Urinary bladder: Unremarkable. Osseous structures: No lytic or blastic lesions IMPRESSION: 1. This report is in agreement with the initial report by [facility]. 2. Moderate left-sided hydronephrosis. Transcribed Date/Time: 08/01/2019 7:55 AM
--- NOTE | 2019-08-01 07:53 | RAD ---
Exam: One view abdomen HISTORY: Pain FINDINGS: Nonspecific bowel gas pattern. 1 cm calculus projects over the medial left renal silhouette . Surgically absent gallbladder is noted. No acute osseous abnormalities. IMPRESSION: 1. 1. Nonspecific bowel gas pattern. 2. Possibly 1 cm calculus projecting over the medial left renal silhouette
[2019-08-01] MEDS ORDERED: cloNIDine 0.1 MG TAB PO SCH ×2 (09:00→15:00)
[2019-08-01] MEDS ORDERED: Ondansetron PF 4 MG/2 ML Vial ONE ×2 (10:02→12:09)
[2019-08-01] MEDS ORDERED: Scopolamine 1.5 mg/72 hour Patch ONE (10:02)
[2019-08-01] MEDS ORDERED: Famotidine/PF 20 mg/2ml Vial ONE (10:02)
--- NOTE | 2019-08-01 10:33 | HP ---
CHIEF COMPLAINT: Large proximal left ureteral stone and hypertension. HISTORY OF PRESENT ILLNESS: The patient is a 59-year-old female, who has just finished and completing rehab for amphetamine abuse when she began to have severe left-sided pain, it began on the afternoon of admission. She had urgency to urinate. She got no relief from Tylenol. Her pain was 8/10 and continued to worsen, so she came to the emergency room. It was associated with nausea and vomiting. There, a large 1.2 cm stone was noted in the left UVJ junction and she is placed in the hospital for pain management, and management of her blood pressure. Dr. Red is well aware of her circumstances, has been consulted and will plan for stent placement later. PAST MEDICAL HISTORY: Significant for hypertension, herniated disk in her back, polysubstance abuse mostly amphetamines, anxiety disorder, GERD, depression, proctocolitis, gastric ulcers in the past, hiatal hernia. PAST SURGICAL HISTORY: Includes a x2, cyst removal from her chest, cholecystectomy, laparoscopic Cari fundoplication by Dr. Herndon in 2017, shoulder surgery. SOCIAL HISTORY: No tobacco, but has a history of alcohol and amphetamine abuse, completing rehab at this time. REVIEW OF SYSTEMS: CONSTITUTIONAL: Denies fever, malaise. HEENT: Denies drainage from eyes, ears, nose, or throat. CHEST: Denies cough or shortness of breath. CARDIOVASCULAR: Denies palpitations or chest pain. ABDOMEN: Admits to nausea and vomiting. Denies diarrhea. : Admits to pain with urination and blood in urine. MUSCULOSKELETAL: No new complaints. SKIN: No new rashes or lesions. PHYSICAL EXAMINATION: VITAL SIGNS: Blood pressure in the ER initially 241/135, has come down to the 170s at this time. Pulse has been 96, respirations 17, temperature 97.8. As mentioned previously, pain scale was rated at 8/10. HEENT: Normocephalic, atraumatic. Pupils are equal, round, and reactive to light. Extraocular muscles are intact. TMs, nares, and pharynx clear. NECK: Supple. Trachea midline. CHEST: Clear to auscultation anteriorly. BREASTS: Deferred. HEART: Regular rate and rhythm without murmur. ABDOMEN: Soft without hepatosplenomegaly. Slight tenderness on the left. BACK: With no CVA tenderness. There is pain with movement. : Deferred. EXTREMITIES: Without clubbing, cyanosis, or edema. Normal range of motion present. SKIN: Without rashes or lesions. NEUROLOGICAL: Cranial nerves are intact. Gait and cerebellar not tested. Sensory exam is grossly intact. LABORATORY DATA: The lab work thus far shows WBCs 13.7, hemoglobin 12.2, hematocrit 37.6 with platelets of 250. Sodium is 136, potassium 3.3, chloride 101, CO2 of 23, BUN is 11, creatinine 1.1 with a GFR 51, glucose 141. Liver functions unremarkable. Toxicology is negative and urine screen is positive for 11-20 RBCs [address] pelvis significant for the aforementioned 1.3 cm calculus in the left renal pelvis with perinephric stranding and peripelvic edema. ASSESSMENT: 1. Left 1.3 cm calculus in left renal pelvis. 2. Polysubstance abuse, finishing rehab. 3. Hypertension. 4. Generalized anxiety disorder. PLAN: Dr. Red is already seeing the patient in consultation. She intends stent placement and discharge. In the meantime, we will begin her on clonidine 0.1 mg b.i.d. to take in addition to the lisinopril 20 mg b.i.d. for her blood pressure. Some of the elevated blood pressure is due to pain. She will be encouraged once stent placement is in place to use Tylenol or Motrin and should she have further complications, she will contact myself or return to the emergency room. She is ordered to finish her rehab and maintain excellent hydration. Job ID: [id number]
[2019-08-01] MEDS ORDERED: Phenazopyridine HCl 97.5 MG TABLET PO PRN (11:53)
[2019-08-01] MEDS ORDERED: Oxybutynin 5 MG TAB PO PRN (11:53)
[2019-08-01] MEDS ORDERED: Acetaminophen 500 MG TAB PO PRN (11:53)
[2019-08-01] MEDS ORDERED: Ondansetron HCl/PF 4 MG/2 ML Vial IVP PRN (11:55)
[2019-08-01] MEDS ORDERED: Promethazine HCl 25 MG/ML VIAL IM PRN (11:55)
[2019-08-01] MEDS ORDERED: Promethazine HCl 25 MG/ML VIAL SLOW IVP PRN (11:55)
[2019-08-01] MEDS ORDERED: Lidocaine 1% PF 5 ML VIAL ONE (12:09)
[2019-08-01] MEDS ORDERED: PROPOFOL 200 MG/20 ML VIAL ONE (12:09)
--- NOTE | 2019-08-01 12:31 | OP ---
DATE OF PROCEDURE: 08/01/2019 PREOPERATIVE DIAGNOSIS: A 59-year-old female with history of polysubstance abuse, currently in rehab, presents with left 6 mm x 1.3 cm proximal ureteral calculi. POSTOPERATIVE DIAGNOSIS: A 59-year-old female with history of polysubstance abuse, currently in rehab, presents with left 6 mm x 1.3 cm proximal ureteral calculi. PROCEDURES PERFORMED: Cystoscopy, left retrograde, 6 x 24 double-J ureteral stent. ANESTHESIA: TIVA. COMPLICATIONS: None apparent. SPECIMEN: None. DISPOSITION: To recovery room in stable condition. INDICATIONS FOR THE PROCEDURE AND HISTORY: Ms. Fernando is a pleasant 59-year-old female who presented with intractable left flank pain as she has a large 1.3 cm left proximal ureteral calculi. Given large stone burden, it is unlikely she would pass the stone spontaneously. She is a recovering polysubstance abuser of amphetamine, therefore no narcotics are provided. She does not desire narcotics, I informed the patient regarding her stone size and ureteral stent is advised to minimize her discomfort. She has been fully informed regarding staged ureteroscopy, laser lithotripsy at a later date when urine culture is negative. Risks and complications of the procedure have been discussed with the patient in detail including, but not limited to, bleeding, pain, infection, injury to adjacent organs, urosepsis. All questions answered to her satisfaction and she desired to proceed. DESCRIPTION OF PROCEDURE: After an informed consent was signed, the patient was taken to the operating room, placed in a dorsal lithotomy position with the genital area prepped and draped in the usual surgical sterile fashion. A 21-Burkinan cystoscope was utilized for cystoscopy, which demonstrated normal bladder mucosa. The UOs were identified in normal orthotopic position. The left UO was intubated with a 5-Burkinan open-ended catheter and a retrograde pyelogram demonstrated a large left UPJ proximal ureteral calculi. With retrograde, the stone did migrate into the renal pelvis. A 0.035 Sensor wire was placed into the left upper pole and a 6 x 24 double-J ureteral stent was passed without difficulty. Bladder was completely emptied and she tolerated the procedure well. She will be transferred back to the floor, if she does well medically, with minimal discomfort, the patient can be discharged home with close followup with me tomorrow. She has been provided prescription of clonidine, lisinopril by her primary care physician, from my perspective I did place orders for her to be discharged with ciprofloxacin 500 mg one p.o. b.i.d. #20, Azo p.r.n., VESIcare 5 mg one p.o. daily for bladder spasms. She will see me tomorrow at 1115 hours to preop for ureteroscopy, laser lithotripsy. Job ID: [id number] MTDD
--- NOTE | 2019-08-01 13:57 | RAD ---
RETROGRADE PYELOGRAM: Date: 08/01/2019 INDICATION: Left stent placement. INDICATION: Intraoperative imaging during left stent placement and retrograde pyelogram study. FINDINGS/IMPRESSION: Four fluoroscopic images from OR are presented. The left collecting structures are opacified. Final i mage demonstrates a left double pigtail ureteral stent in place. POS: [facility]
[2019-08-01] MEDS ORDERED: Labetalol HCl 100 MG/20 ML VIAL SLOW IVP PRN (14:41)
[2019-08-01] MEDS ORDERED: Sodium Chloride 0.9% 1,000 ML IV SCH (14:45)
[2019-08-01] MEDS ORDERED: Lisinopril 20 MG TAB PO SCH ×2 (15:00→21:00)
[2019-08-01 15:50] VITALS: BP 161/79; TEMP 98.1
[2019-08-01] MEDS ORDERED: Docusate 100 MG CAP PO SCH (21:00)
--- NOTE | 2019-08-04 09:22 | EKG ---
Test Reason : Blood Pressure : / mmHG Vent. Rate : 073 BPM Atrial Rate : 073 BPM P-R Int : 162 ms QRS Dur : 084 ms QT Int : 446 ms P-R-T Axes : 052 -14 079 degrees QTc Int : 491 ms Normal sinus rhythm Possible Inferior infarct , age undetermined Abnormal ECG Confirmed by FELA PEPE ([id number]), movie editor KILLIAN BUTTS ([id number]) on 08/04/2019 9:21:53 AM Referred By: Confirmed By:FELA PEPE
== END 2019-08-01 16:01 | disposition home or self-care (01) ==
LOC: ERS 23:02 → SURG B 08-01 02:42
PROVIDERS: ADMIT Specialist; ATTEND Specialist
PROC: 0T778DZ Dilation of Left Ureter with Intraluminal Device, Via Natural or Artificial Opening Endoscopic (ICD-10-PCS; principal; 2019-08-01)
DX: N20.1 Calculus of ureter (principal); F41.1 Generalized anxiety disorder; F32.9 Major depressive disorder, single episode, unspecified; K21.9 Gastro-esophageal reflux disease without esophagitis; Z79.899 Other long term (current) drug therapy
CPT/HCPCS: 36415; 74018; 74176; 74420; 80053; 80306; 81003; 81015; 85025; 87086; 93005; 96372; 96374; 96375; C1758; C1769; G0378; J0360; J1885; J2001; J2405; J2704; S0028

== ENCOUNTER 2019-08-08 06:29 | Day surgery (SDC) | payer BC ==
[2019-08-07 15:34] VITALS: BMI 27.1
[2019-08-08] MEDS ORDERED: Levofloxacin 500 mg/D5W 100 ml Premix Bag ONE (07:48)
[2019-08-08 08:12] LABS: PTT 29.7 SEC (22.9-36.1); Prothrombin Time 13.1 SEC (12.0-14.7)
--- NOTE | 2019-08-08 09:03 | RAD ---
PORTABLE CHEST: DATE: 08/08/2019. PROVIDED CLINICAL HISTORY: Preop. FINDINGS: Comparison 08/08/2019. Hiatal hernia is redemonstrated. Airspace disease of the lateral left lung base may reflect some sub segmental atelectasis or infiltrate. No pleural fluid or pneumothorax apparent. IMPRESSION: Airspace disease lateral left lung base as described. POS: [facility]
--- NOTE | 2019-08-08 09:06 | RAD ---
KUB: DATE: 08/08/2019. PROVIDED CLINICAL HISTORY: Preop. FINDINGS: Comparison 08/01/2019. Left ureteral stent is now in place. Ovoid calcification again overlies the l eft renal shadow. Cholecystectomy clips are seen in the right upper quadrant. Presumed ingested mat erial overlies the right hemipelvis and right lower quadrant. The abdominal bowel gas pattern is non specific. IMPRESSION: Left nephrolithiasis. POS: [facility]
[2019-08-08] MEDS ORDERED: Fentanyl 100 MCG/2 ML VIAL ONE (09:20)
[2019-08-08] MEDS ORDERED: Midazolam HCl 2 mg/2 ml Vial ONE (09:20)
[2019-08-08] MEDS ORDERED: Labetalol HCl 100 MG/20 ML VIAL ONE (09:28)
[2019-08-08] MEDS ORDERED: Iothalamate Meglumine 60% 50 ML VIAL FS ONE (09:48)
[2019-08-08] MEDS ORDERED: EPHEDRINE 25 MG/5 ML SYRINGE ONE (10:04)
[2019-08-08] MEDS ORDERED: Ondansetron PF 4 MG/2 ML Vial ONE (10:04)
[2019-08-08] MEDS ORDERED: Lidocaine 1% PF 5 ML VIAL ONE (10:04)
[2019-08-08] MEDS ORDERED: PHENYLEPHRINE-NS 100 MCG/ML 10 ML SYRINGE ONE (10:04)
[2019-08-08] MEDS ORDERED: Glycopyrrolate 0.2 MG/ML 5 ML SYRINGE ONE (10:04)
[2019-08-08] MEDS ORDERED: Dexamethasone 20 MG/5 ML VIAL ONE (10:04)
[2019-08-08] MEDS ORDERED: Rocuronium Bromide 10 MG/ML (10ML VIAL) ONE (10:04)
[2019-08-08] MEDS ORDERED: Succinylcholine Chloride 20 MG/ML 10 ml SYRINGE FS ONE (10:04)
[2019-08-08] MEDS ORDERED: Ketorolac Tromethamine 30 MG/ML VIAL ONE (10:04)
[2019-08-08] MEDS ORDERED: hydrALAZINE 20 MG/ML VIAL ONE (11:14)
[2019-08-08] MEDS ORDERED: Oxybutynin 5 MG TAB ONE (11:45)
[2019-08-08] MEDS ORDERED: Phenazopyridine HCl 97.5 MG TABLET ONE (11:45)
--- NOTE | 2019-08-08 12:00 | RAD ---
RETROGRADE PYELOGRAM: Date: 08/08/2019 HISTORY: Stent change. FINDINGS: A single film presented for interpretation shows a left ureteral stent in good position. IMPRESSION: Left ureteral stent in good position. POS: C
--- NOTE | 2019-08-08 12:17 | OP ---
DATE OF PROCEDURE: 08/08/2019 PREOPERATIVE DIAGNOSES: 1. A 59-year-old female with history of left 1.3 cm obstructing ureteropelvic junction stone measuring 1.3 cm, Hounsfield unit greater than 1000. 2. History of methamphetamine abuse, currently in rehab. POSTOPERATIVE DIAGNOSES: 1. A 59-year-old female with history of left 1.3 cm obstructing ureteropelvic junction stone measuring 1.3 cm, Hounsfield unit greater than 1000. 2. History of methamphetamine abuse, currently in rehab. PROCEDURES PERFORMED: Cystoscopy, left retrograde pyelogram, 6 x 26 double-J ureteral stent replacement, flexible ureteroscopy, pyeloscopy, laser lithotripsy of large left renal calculi, basket extraction. ANESTHESIA: General. COMPLICATIONS: None apparent. DISPOSITION: To recovery room in stable condition. SPECIMEN: Stone fragments for chemical analysis. INDICATIONS FOR THE PROCEDURE AND HISTORY: Ms. Fernando is a 59-year-old female who presented to the emergency room due to significant left flank pain as she was found to have a large 1.3-cm obstructing UPJ stone with perinephric stranding. She underwent stent placement and presents today for ureteroscopy, laser lithotripsy. Risks and complications of the procedure including, but not limited to, bleeding , pain, infection, injury to adjacent organs, ureteral, renal, kidney injury, stricture formation, possible secondary procedure were reviewed with her in detail and she desired to proceed. DESCRIPTION OF PROCEDURE: After an informed consent was signed, the patient was taken to the operating room, placed in a dorsal lithotomy position with the genital area prepped and draped in the usual surgical sterile fashion. A 21-Algerian cystoscope was utilized for cystoscopy and the previously placed ureteral stent was removed to the level of the meatus. A 0.035 Sensor wire was then passed through the left stent. There was some hang up at the left UPJ where the stone initially presented. We performed multiple retrogrades and the ureter itself appeared to be intact with no extravasation. That was most likely due to some mucosa edema. Therefore, we gently negotiated a 0.035 Glidewire. This required some manipulation, however, I was able to negotiate the wire to the left upper pole. At this time , the wire was then switched to a 0.035 Sensor wire into the left upper pole and a 10-Algerian dual-lumen access sheath was gently passed over the safety wire to the level of the renal pelvis. A second working wire, 0.035 Super Stiff wire was placed into the left upper pole. At this time, an 11/13-Algerian x 28 cm navigator was able to be passed over the Super Stiff wire without any issues to the left proximal ureter and a flexible ureteroscopy was performed over the Super Stiff wire. Once we were in the pelvis, the rigid wire was removed. Surveillance of the ureter itself over the hang up was demonstrated no evidence of mucosal tear or defect. There appeared to be some edema consistent with the obstructing stone at this level as she initially presented. At this time, we surveyed the collecting system and the large stone had migrated into the left lower pole region. Using a 273 micron ball-tip fiber, we laser lithotripsied the stone into multiple fragments at energy of 1.2 joules in a dust setting. The stone did break up nice with multiple tiny fragments. Due to that in the lower pole, the angle of the residual stones were somewhat challenging to treat. We stayed on the stone and laser lithotripsied as much as we could. We did basket a few fragments for chemical analysis. We attempted to basket extracted residual debris. There were small in caliber. It was difficult to basket because they were small, in addition because of the angle of the residual stone nidus, basket extraction was cumbersome. As such, we replaced the laser fiber and we dusted the residual stone debris as much as we could. At the end of the procedure, there were minute dustlike stone debris that she will most likely pass. I surveyed the ureter again, which demonstrated no evidence of ureteral injury, no evidence of ureteral calculi is appreciated. The navigator was completely removed. We then transitioned back to a cystoscope and a 6 x 26 double-J ureteral stent was passed without difficulty into the left upper pole with adequate coil and adequate redundancy in the bladder. She tolerated the procedure well and then transported to the recovery room in stable condition. She is discharged with orders for a KUB to be done on Tuesday at 9:00 a.m., discharged with VESIcare 5 mg #30, Colace 100 mg #30 one p.o. b.i.d., Omnicef 1 p.o. b.i.d., Azo p.r.n. for dysuria. She has been on Tylenol, Motrin for her discomfort and will continue to do so for postoperative discomfort. KUB to be done on Tuesday. She will see me on , August 15 for cysto, stent pull. She has no significant stone nidus of concern. Job ID: [id number] MTDD
== END 2019-08-08 13:45 | disposition home or self-care (01) ==
LOC: SDC 06:29
PROVIDERS: ATTEND Urology
PROC: 0T778DZ Dilation of Left Ureter with Intraluminal Device, Via Natural or Artificial Opening Endoscopic (ICD-10-PCS; principal; 2019-08-08)
PROC: 0TC48ZZ Extirpation of Matter from Left Kidney Pelvis, Via Natural or Artificial Opening Endoscopic (ICD-10-PCS; principal; 2019-08-08)
DX: N20.1 Calculus of ureter (principal); F15.11 Other stimulant abuse, in remission; I10 Essential (primary) hypertension; Z87.891 Personal history of nicotine dependence; Z79.899 Other long term (current) drug therapy
CPT/HCPCS: 36415; 71045; 74018; 74420; 82365; 85610; 85730; 88300; C1758; C1769; J0360; J1100; J1885; J1956; J2001; J2250; J2405; J3010

== ENCOUNTER 2019-08-15 13:33 | Outpatient (CLI) | payer BC ==
--- NOTE | 2019-08-15 14:06 | RAD ---
ABDOMEN ONE VIEW: 08/15/19 HISTORY: Renal calculi. COMPARISON: Radiograph 08/06/19. FINDINGS: There is decreased left renal stone burden. Double-J left ureteral stent is in place. IMPRESSION: 1. Fragmented appearance of the interpolar left renal calculus. 2. No calculus is seen along the expected location of the left ureter. POS: HOME
== END 2019-08-15 13:34 | disposition home or self-care (01) ==
LOC: BICRAD 13:33
PROVIDERS: ATTEND Urology
DX: N20.0 Calculus of kidney (principal)
CPT/HCPCS: 74018

== ENCOUNTER 2020-01-08 12:40 | Outpatient (CLI) | payer BC ==
[~2020-01-08 12:40] MED LIST changes: -ISOVUE-370 76%-LOCM 1 ML ONE; +Iopamidol 370 76% 100 ML VIAL ONE; -Iopamidol 370 76% 50 ML VIAL FS ONE
--- NOTE | 2020-01-08 13:52 | CT ---
CT ABDOMEN AND PELVIS WITH IV CONTRAST 01/08/2020 CLINICAL INFORMATION: Gastroesophageal reflux. Epigastric abdominal pain. COMPARISON: 08/21/2017 and 08/01/2019 Technique: Multiple contiguous axial CT images are obtained through the abdomen and pelvis with IV contrast. Cor onal reformatted images are provided. FINDINGS: Lower Chest: Minimal pleural thickening is seen at the posterior aspect of each lung base. Again note d is a hiatal hernia with the fundus of the stomach above the hemidiaphragms. Vessels: Abdominal aorta is normal in caliber. Abdomen: Portal vein:Patent Gallbladder: Surgically absent. Liver: within normal limits. Spleen: within normal limits. Pancreas: within normal limits. Adrenals: within normal limits. Kidneys: Hypodense lesions new aspect superior pole left kidney unchanged from prior study. Lesions w ere also seen on study in 2017. Right kidney demonstrates a normal CT appearance. Previously seen obstructing left UPJ calculus on prior study on 08/01/2019 is no longer visualized and likely related to interval treatment. Left hydronephrosis has resolved. Bowel: Evidence of colonic diverticulosis. Loops of small bowel are normal in caliber. Appendix: The appendix is visualized and normal in caliber. Peritoneum: No ascites or free air; no fluid collection. Mesentery and Retroperitoneum: No enlarged mesenteric or retroperitoneal lymph nodes. Abdominal Wall: Midline scarring with a few small fat-containing ventral abdominal wall hernia is see n in the upper abdomen. Pelvis: Reproductive Organs: No pelvic masses. Bladder: within normal limits. Bones: No suspicious lytic or sclerotic osseous lesions. IMPRESSION: 1. Colonic diverticulosis. 2. Moderate size hiatal hernia. 3. Stable hypodense left renal lesions statistically likely representing cysts. 4. Postcholecystectomy changes. 5. No acute process in the abdomen or pelvis.
== END 2020-01-08 12:41 | disposition home or self-care (01) ==
LOC: BICCT 12:40
PROVIDERS: ATTEND Surgery
DX: K21.9 Gastro-esophageal reflux disease without esophagitis (principal); K44.9 Diaphragmatic hernia without obstruction or gangrene; K57.30 Diverticulosis of large intestine without perforation or abscess without bleeding; N28.9 Disorder of kidney and ureter, unspecified; Z90.49 Acquired absence of other specified parts of digestive tract
CPT/HCPCS: 74177; 82565; Q9967

== ENCOUNTER 2020-04-10 16:07 | Inpatient (IN) | payer BC ==
[2020-04-10] MEDS ORDERED: Ondansetron PF 4 MG/2 ML Vial IVP PRN (19:59)
[2020-04-10] MEDS: Acetaminophen 325 MG TAB PO PRN (21:07)
[2020-04-10] MEDS: cloNIDine 0.1 MG TAB PO PRN (21:11)
[2020-04-10 21:14] VITALS: BMI 32.5
[2020-04-10 21:34] LABS: Troponin I Less than 0.010 ng/mL (< 0.028)
[2020-04-10] MEDS ORDERED: Potassium Chloride 20 MEQ TAB PO SCH (23:45)
[2020-04-11] MEDS: cloNIDine 0.1 MG TAB PO PRN ×4 (00:08→23:31)
[2020-04-11 08:05] LABS: Troponin I 0.014 ng/mL (< 0.028)
[2020-04-11] MEDS ORDERED: cloNIDine 0.3mg/24 Hour PATCH TD SCH (09:00)
[2020-04-11] MEDS ORDERED: cloNIDine 0.1 MG TAB PO SCH (09:00)
[2020-04-11] MEDS ORDERED: Sodium Chloride 0.9% (PF) 10 ML VIAL FS PRN (09:30)
[2020-04-11] MEDS: Lisinopril 20 MG TAB PO SCH (09:43)
[2020-04-11] MEDS: Pantoprazole 40 MG VIAL IVP SCH ×2 (09:44→21:49)
[2020-04-11 09:48] LABS: #Basophils 0.1 thou/uL (0.0-0.2); #Eosinphils 0.2 thou/uL (0.0-0.7); #Lymphocytes 1.4 thou/uL (1.20-3.40); #Monocytes 0.6 thou/uL (0.11-0.59); #Neutrophils 2.9 thou/uL (1.40-6.50); %Eosinophils 3.9 % (0.0-10.0); %Lymphocytes 27.4 % (21.0-51.0); %Monocytes 11.3 % (0.0-10.0); %Neutrophils 56.4 % (42.0-75.0); Hemoglobin 8.8 g/dL (12.0-16.0); Mean Corpuscular HGB CONC 32.3 g/dL (32.0-36.0); Mean Corpuscular Hemoglobin 23.8 pg (27.0-31.0); Mean Corpuscular Volume 73.5 fL (78.0-98.0); Platelet Count 233 thou/uL (130-400); Red Blood Cell (RBC) Count 3.69 mill/uL (4.20-5.40); White Blood Cell (WBC) Count 5.1 thou/uL (4.8-10.8)
--- NOTE | 2020-04-11 09:52 | HP ---
CHIEF COMPLAINT ON ADMISSION: Severe anemia with hypertensive urgency. HISTORY OF PRESENT ILLNESS: The patient is a 60-year-old female with 2-week history of feeling fatigued, malaise and dyspnea on exertion two days prior to going to [facility], she had protracted vomiting. She continued to feel extremely weak, so showed up there on 04/10/2020, with flu-like symptoms. Of course, flu screens were run, they were negative. BNP was 194. COVID was negative. However, on H and H, they found her hemoglobin of 6.7 and hematocrit of 20. Then, Dr. Foreman was contacted about putting her in the hospital for further evaluation and treatment of the severe anemia. The patient has a history of amphetamine abuse, but has been clean, having finished rehab this last year. She has a history of a hernia with an ulceration in it, requiring surgical repair. She has severe hypertension. On arrival to [place], her blood pressure was also noted to be 223/93. At which time, Dr. Foreman was contacted to treat that. PAST MEDICAL HISTORY: Hypertension, dyslipidemia, noncompliance with medication and medical care. Amphetamine substance abuse. PAST PSYCHIATRIC HISTORY: Includes depression, amphetamine abuse. PAST SURGICAL HISTORY: Includes the aforementioned hernia repair by Dr. Elizabeth for the ulceration. She has also had a section, cholecystectomy, colon surgery, and shoulder replacement. SOCIAL HISTORY: She is . Still smokes. Drinks socially only. No longer uses illicit drugs. ALLERGIES: SHE HAS NO KNOWN DRUG ALLERGIES. MEDICATIONS ON ADMISSION: Include, 1. Lisinopril 40 mg daily. 2. Clonidine 0.1 mg 3 times a day. 3. Cymbalta 60 mg daily. REVIEW OF SYSTEMS: CONSTITUTIONAL: Significant for aforementioned fatigue, malaise, dyspnea with exertion. HEENT: Denies drainage from eyes, ears, nose, or throat. CHEST: Has dyspnea with minimal exertion. No cough. CARDIOVASCULAR: Denies chest pain or palpitations. GI: Admits to having severe nausea and vomiting 2 days earlier. Denies seeing any blood in the emesis or in her stool. : Denies painful urination, blood in urine or stool. MUSCULOSKELETAL: Denies muscle aches or pains. SKIN: No new rashes or lesions. NEUROLOGICAL: Denies headaches or trouble with mentation, blurred vision. PHYSICAL EXAMINATION: VITAL SIGNS: Currently, blood pressure 191/89, pulse is 77, temperature 98.3, O2 saturation is 98 on room air. She weighs 183 pounds. GENERAL: This is an obese female, alert, oriented, cooperative. HEENT: Normocephalic, atraumatic. Pupils are equal, round, and reactive to light. Extraocular muscles are intact. Conjunctiva clear without icterus. TMs, nares, and pharynx are clear. NECK: Supple. Trachea midline. No bruits. No mass. CHEST: Good breath sounds bilaterally. BREASTS: Deferred. HEART: Regular rate and rhythm without murmur. ABDOMEN: Unable to appreciate organomegaly. Well-healed midline scars are noted. The patient reports presence of a hernia, I am unable to appreciate that. : Deferred. RECTAL: Stool occult was negative per [facility]. EXTREMITIES: Without clubbing, cyanosis, or edema. Normal range of motion present. Symmetrical muscular tone development noted in the upper and lower extremities. SKIN: Without evidence of bruising, bleeding, or acute lesions. NEUROLOGIC: Cranial nerves are intact. Mental status is clear. Gait and cerebellar function are normal. Sensory exam is grossly intact. LABORATORY DATA: Thus far, chest x-ray shows no acute findings. Urinalysis is unremarkable. BNP is 194. Occult blood as mentioned previously is negative x1. Glucose 135, potassium is 3.3, BUN 7, creatinine 0.4, sodium 139, chloride 102, CO2 is 28. WBC 6.1, hemoglobin in [facility] was 6.7 with hematocrit of 20, unremarkable diff. Flu screens are negative for A and B. COVID screen is negative. ASSESSMENT: 1. Acute anemia, etiology undetermined. ?GI w/ hx of ulceration 2. Hypertensive urgency. 3. Hypokalemia. 4. Dyspnea with exertion, attributable probably to her severe anemia. PLAN: 1. We will continue clear liquids at this time. Consult GI for possible endoscopy. Lab is pending for bone marrow sources of loss such as iron deficiency or B12 deficiency. 2. Control blood pressure. 3. Protonix 40 mg b.i.d. and serial re-evaluation, and finally replacement of potassium. 4. Serially re-evaluate patient, BP and H&H Job ID: [id number] [facility]
[2020-04-11 09:55] LABS: Reticulocyte Count 1.7 % (0.5-1.5)
[2020-04-11 09:56] LABS: Anion Gap 14 mmol/L (10-20); BUN (Urea Nitrogen) 7 mg/dL (9.8-20.1); Calc. Creatinine Clearance 101 mL/min (70-130); Calcium 8.6 mg/dL (7.8-10.44); Carbon Dioxide 24 mmol/L (23-31); Chloride 103 mmol/L (98-107); Glucose 116 mg/dL (80-115); Iron 18 ug/dL (50-170); Iron Binding Capacity, Total 423 mcg/dL (265-497); Potassium 3.1 mmol/L (3.5-5.1); Sodium 138 mmol/L (136-145)
[2020-04-11 10:01] LABS: Troponin I Less than 0.010 ng/mL (< 0.028)
[2020-04-11 10:10] LABS: Anisocytosis MODERATE=16-30 cells (100X) (0-5/hpf); Hypochromia MODERATE=16-30 cells (100X) (0-5/hpf); Large Platelets SLIGHT; MDiff Complete? YES; Microcytosis SLIGHT = 6-15 cells (100X) (0-5/hpf); Platelet Morphology Comment Appears Adequate; Polychromasia SLIGHT = 2-3 cells (100X) (0-2/hpf)
[2020-04-11] MEDS: Acetaminophen 325 MG TAB PO PRN (12:32)
--- NOTE | 2020-04-11 19:38 | CON ---
DATE OF CONSULTATION: 04/10/2020 REASON FOR CONSULT: Iron deficiency anemia. HISTORY OF PRESENT ILLNESS: Ms. Fernando is a pleasant 60-year-old female who was admitted to the hospital from an outside facility where she presented with shortness of breath and dyspnea and was worried about COVID there. She was found to be COVID negative with negative chest x-ray. She was found to have a hemoglobin of 6 with a low MCV suggestive of chronic iron deficiency anemia. She reports she has had history of hernias and reviewing her records, she has had paraesophageal hernia and gastric volvulus with surgery repaired a couple of times. Her last EGD was in 2011. Her last colonoscopy that I see here is 2009, although she reports she thinks she had one a few years ago. She has had chronic issues with anemia and follow up with Hematology in the past for iron infusions. She has not been there in quite some time. She was admitted to the hospital today and transferred to an outside facility and transfused. She does feel better now. Apparently, she has some issues of hypertensive urgency as well. She denies using NSAID. She is on no PPIs and has not been on iron sometime. The patient denies any history of melena, hematochezia, or hematemesis. She does have intermittent issues of dysphagia and vomiting, however. PAST MEDICAL HISTORY: Hypertension, dyslipidemia, iron deficiency anemia, untreated reflux. The admission H and P documents a history of noncompliance of medical care, history of kidney stones. PAST SURGICAL HISTORY: Includes hernia repair for paraesophageal hiatal hernia, section, cholecystectomy, colonoscopy in 2009, EGD last in 2001. Shoulder surgery placement. Last abdominal surgery was a repair of incarcerated paraesophageal hernia with an incisional hernia in 2017. Also earlier that year in 07/2017 and also in 12/2016. SOCIAL HISTORY: . Smokes and drinks socially only. Denies using illicit drugs. 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 ALLERGIES: NONE KNOWN. MEDICATIONS: At home: 1. Lisinopril. 2. Clonidine. 3. Cymbalta. Present medications here: 1. Tylenol. 2. Catapres. 3. Lisinopril. 4. Protonix 40 IV q.12. 5. Seroquel. 6. Normal saline . 7. KCl at 100. REVIEW OF SYSTEMS: Dyspnea on exertion improved after transfusion. No history of chest pain or orthopnea. No history of cough, fever, chills, myalgias, or arthralgias. No dysuria, frequency, or urgency. Negative change in bowel function. GI: Notable for intermittent episodes of vomiting and dysphagia. This has been chronic it seems. Negative for history of rashes or celiac, history of neurologic disorder, seizures, TIAs or strokes. FAMILY HISTORY: Noncontributory. PHYSICAL EXAMINATION: VITAL SIGNS: Temperature is 96, pulse 66, blood pressure 150/69. GENERAL: The patient is resting comfortably in bed. She has no distress. LUNGS: Clear. HEART: Regular rate and rhythm without clicks or murmurs. ABDOMEN: Soft, nontender. There is midline incision. There is small incisional hernia, but incarceration is nontender. There is no palpable hepatosplenomegaly. There is no shifting, dullness, fluid wave or inguinal hernias. EXTREMITIES: No clubbing, cyanosis, or edema. Normal skin turgor. NEUROLOGIC: Within normal limits. No focal defects. LABORATORY DATA: White count 5.1, hemoglobin 8.8, up from 6 at outside facility, platelet count 233, MCV 73. Comprehensive metabolic profile normal. BUN 7, creatinine 0.77. Iron was 18 on admission. Ferritin 4.2 in 2016, but not checked this admission, TIBC was 423, B12 667, folate 11. Abdomen and pelvis CT 01/08/[address] Victor, hiatal hernias with fundus of the stomach above the hemidiaphragm. Post cholecystectomy changes. ASSESSMENT: Chronic anemia likely related to previous gastric surgeries and hernia. She is not on a PPI. She is not on iron. She require IV iron as far back as 2014. RECOMMENDATIONS: EGD tomorrow. If this is normal, she can go home. We can consider screening colonoscopy in outpatient setting electively at a later date. She would benefit from IV iron supplementation and probably routine PPI therapy. We will follow along with you. Job ID: [id number]
[2020-04-12] MEDS: cloNIDine 0.1 MG TAB PO PRN ×3 (04:34→14:53)
[2020-04-12 04:54] LABS: #Eosinphils 0.2 thou/uL (0.0-0.7); #Lymphocytes 1.9 thou/uL (1.20-3.40); #Monocytes 0.5 thou/uL (0.11-0.59); #Neutrophils 1.7 thou/uL (1.40-6.50); %Basophils 0.9 % (0.0-1.0); %Eosinophils 5.5 % (0.0-10.0); %Lymphocytes 43.2 % (21.0-51.0); %Neutrophils 38.4 % (42.0-75.0); Mean Corpuscular HGB CONC 31.5 g/dL (32.0-36.0); Mean Corpuscular Hemoglobin 23.1 pg (27.0-31.0); Mean Corpuscular Volume 73.5 fL (78.0-98.0); Mean Platelet Volume 11.4 fL (7.4-10.4); Platelet Count 218 thou/uL (130-400); RBC Distribution Width 22.5 % (11.5-14.5); Red Blood Cell (RBC) Count 3.44 mill/uL (4.20-5.40); White Blood Cell (WBC) Count 4.3 thou/uL (4.8-10.8)
[2020-04-12 05:13] LABS: Anion Gap 13 mmol/L (10-20); BUN (Urea Nitrogen) 4 mg/dL (9.8-20.1); Calc. Creatinine Clearance 106 mL/min (70-130); Calcium 8.1 mg/dL (7.8-10.44); Carbon Dioxide 22 mmol/L (23-31); Chloride 107 mmol/L (98-107); Glucose 94 mg/dL (80-115); Sodium 139 mmol/L (136-145)
[2020-04-12 05:18] LABS: Potassium 2.9 mmol/L (3.5-5.1)
[2020-04-12] MEDS ORDERED: NS 0.9% w/ 20 MEQ KCL 1,000 ML IV SCH (05:45)
[2020-04-12] MEDS ORDERED: Potassium Chloride 20 MEQ TAB PO SCH (05:45)
[2020-04-12] MEDS: Acetaminophen 325 MG TAB PO PRN (06:23)
[2020-04-12] MEDS: Pantoprazole 40 MG VIAL IVP SCH (07:58)
[2020-04-12] MEDS: Lisinopril 20 MG TAB PO SCH (07:58)
[2020-04-12] MEDS ORDERED: PROPOFOL 200 MG/20 ML VIAL ONE (10:37)
--- NOTE | 2020-04-12 12:51 | OP ---
DATE OF PROCEDURE: 04/12/2020 PROCEDURES: Esophagogastroduodenoscopy and biopsy. PRE-PROCEDURE DIAGNOSES: 1. History of chronic iron deficiency anemia. 2. History of a complicated repair of a large paraesophageal hernia with subsequent surgeries. The last being in 2018. 3. Last colonoscopy in 2009. POSTPROCEDURE DIAGNOSES: 1. Persistent hiatal hernia, predominantly sliding with gastroesophageal junction normal at 35 cm from the incisural orifice and the diaphragmatic hiatus at 40 cm. There was a small paraesophageal component without incarceration or necrosis. 2. Abbe ulcerations at the hiatus, biopsied, not bleeding actively, but likely a source of her anemia. 3. Antral gastritis, minute, biopsied, not active bleeding, likely contributing to anemia. 4. Normal duodenum in the third portion. RECOMMENDATIONS: 1. The patient needs to be on iron for the rest of her life. She may need iron infusions. She has had that before with Hematology. Presently, she is transfused up with a good hemoglobin. 2. Patient needs to be on maintenance PPIs for the rest of her life. 3. Patient needs to avoid NSAIDs all time. 4. Patient could follow up after the holidays in the office. She wants to consider a followup screening colonoscopy. She has not had one in 10 years. Otherwise, she can go home today. ANESTHESIA: TIVA. PROCEDURE IN DETAIL: After the patient was informed of the risks, benefits, and possible complications of endoscopy including perforation, bleeding, reaction to medication, and aspiration, informed consent was obtained. The patient was brought to endoscopy suite where she was sedated in gradual fashion. Once she was comfortable, a bite block was placed in the incisural orifice. The endoscope was advanced into the esophagus, stomach, and into the second and third portions of the duodenum and slowly removed. The distal esophagus was normal without any evidence of esophagitis or Fang esophagus. The Z-line and GE junction were at 35 cm from the incisural orifice. The stomach was entered and there was a large sliding hiatal hernia with a small paraesophageal component. With retroflexion, there were no signs of incarcerated mucosa or volvulus with the paraesophageal component. It was less than 3 cm in size. views, Abbe ulcers or erosions can be seen in the hiatal hernia sac. These were nonbleeding, but likely the source of the patient's chronic anemia. They were biopsied, but they looked benign. The scope was advanced to the antrum where there were some small erosions biopsied. Retroflexed views in the antrum to the remainder of the body showed no evidence of other lesions or ulcers. There were no AVMs or masses. The scope was advanced to the duodenal bulb and the second and third portion of the duodenum, which was normal. The stomach was then desufflated. The scope was removed. The patient tolerated the procedure well. There were no complications. Job ID: [id number]
[2020-04-12 14:53] VITALS: BP 185/90; TEMP 98.1
--- NOTE | 2020-04-14 15:40 | PQF ---
CLINICAL DOCUMENTATION CLARIFICATION FORM: Dear Dr. Luis Foreman Date: 04-14-20 Please exercise your independent, professional judgment in responding to the clarification form. Clinical indicators are provided on the bottom of this form for your review Please check appropriate box(es): [ ] Acute posthemorrhagic blood loss anemia [ x ] Chronic Blood Loss Anemia Blood [ ] Iron deficiency anemia [ ] Other diagnosis [ ] Unable to determine For continuity of documentation, please document condition throughout progress notes and discharge summary. Thank You. To be completed by CDI/Coding staff for physician review: CLINICAL INDICATORS - SIGNS / SYMPTOMS / LABS / RESULTS AND LOCATION IN EMR LABS: Hgb Hct . @ 0922 8.8 27.1 . @ 0405 8.0 25.3 04.11 H&P ([facility]): * 2 week hx of feeling fatigued, malaise and dyspnea on exertion * [facility] 2 days prior to going had protracted vomiting. Showed up there on 04.10 w/ flu-like symptoms. HH 6.11/04 * severe anemia w/ hypertensive urgency * Acute anemia, etiology undetermined. ? GI w/ hx of ulceration; 04.10 Consult ([facility]): * Intermittent issues of dysphagia and vomiting; untreated reflux; iron deficiency anemia; hx of noncompliance of medical care; * DX: chronic anemia likely r/t previous gastric surgeries and hernia; 04.12 Op note: EGD and biopsy Persistent hiatal hernia, predominantly sliding w/ gastroesophageal junction....small paraesophageal component w/o incarceration or necrosis; Abbe ulcerations at the hiatus , not bleeding actively but likely a source of her anemia; antral gastritis, minute, biopsied, not active bleeding, likely contributing to anemia; RISK FACTORS / RESULTS AND LOCATION IN EMR 04.11 H&P ([facility]): * PMH noncompliance w/ medications; hernia repair for ulceration TREATMENTS / RESULTS AND LOCATION IN EMR 04.11 H&P ([facility]hsan): *Protonix 40mg b.i.d and serial re-evaluation * replacement of potassium * serial re-evaluation BP and H&H CPOE: GI consult ([place] 04.11) Blood Transfusion 22 units PRBC (04.11) 04.12 ([place]) EGD CDS Signature: Cindy Woo RN, CCDS Phone #: [phone] [email or web address] This is a permanent part of the Medical Record [facility]
== END 2020-04-12 15:51 | disposition home or self-care (01) | DRG 812 ==
LOC: 2NO 16:07
PROVIDERS: ADMIT Specialist; ATTEND Specialist
PROC: 0DB78ZX Excision of Stomach, Pylorus, Via Natural or Artificial Opening Endoscopic, Diagnostic (ICD-10-PCS; principal; 2020-04-12)
DX: D50.0 Iron deficiency anemia secondary to blood loss (chronic) (principal); I16.0 Hypertensive urgency; I10 Essential (primary) hypertension; E78.5 Hyperlipidemia, unspecified; F32.9 Major depressive disorder, single episode, unspecified; Z96.619 Presence of unspecified artificial shoulder joint; E66.9 Obesity, unspecified; Z20.828 Contact with and (suspected) exposure to other viral communicable diseases; E87.6 Hypokalemia; Z90.49 Acquired absence of other specified parts of digestive tract; Z79.899 Other long term (current) drug therapy; Z68.32 Body mass index [BMI] 32.0-32.9, adult; K44.9 Diaphragmatic hernia without obstruction or gangrene; K29.00 Acute gastritis without bleeding
CPT/HCPCS: 36415; 36430; 80048; 82274; 82607; 82746; 83540; 83550; 84484; 85025; 85046; 86850; 86870; 86900; 86901; 86922; 88305; 88312; C9113; J2704; J3480; J7050; P9016

== ENCOUNTER 2020-09-22 12:27 | Emergency (ER) | payer SELFPAY ==
[2020-09-22] MEDS ORDERED: Lorazepam 2 MG/ML VIAL ONE (14:55)
== END 2020-09-22 15:04 | disposition home or self-care (01) ==
LOC: ERS 12:27
DX: F41.9 Anxiety disorder, unspecified (principal); K21.9 Gastro-esophageal reflux disease without esophagitis; I10 Essential (primary) hypertension; Z79.899 Other long term (current) drug therapy
CPT/HCPCS: 93005; J2060